=== PATIENT | male | born 1980 ===

== ENCOUNTER 2018-06-16 23:06 | Inpatient (IN) | payer OTHER ==
[2018-06-16] MEDS ORDERED: ACETAMINOPHEN 1000 MG/100 ML VIAL (NON FORMULARY) IVPB ONE (23:14)
[2018-06-16] MEDS ORDERED: SODIUM CHLORIDE 1,000 ML IV STA ×2 (23:14)
[2018-06-16] MEDS ORDERED: PIPERACILLIN/TAZOB 3.375 GM 3.375 GM in DEXTROSE 5%-WATER - 50 ML IVPB ONE (23:14)
[2018-06-16 23:17] VITALS: BMI 27.3
[2018-06-16] MEDS ORDERED: PIPERACILLIN/TAZOB 4.5 GM 4.5 GM in DEXTROSE 5%-WATER 100 ML IVPB ONE (23:21)
[2018-06-16] MEDS ORDERED: VANCOMYCIN 1 GRAM (PRE-DOCKED) 1,000 MG/250 ML BAG IVPB ONE (23:22)
[2018-06-16] MEDS ORDERED: PIPERACILLIN/TAZOB 4.5 GM 4.5 GM/100 ML BAG IVPB ONE (23:22)
[2018-06-16 23:37] LABS: BASO % 1.6 % (0-2.0); EOS % 2.3 % (0-4.5); LYMPH % 12.6 % (8-40); MCH 24.3 pg (25.7-33.7); MCHC 32.4 g/dl (32.0-35.9); MEAN CELL VOLUME 74.9 fl (80-96); MEAN PLT VOLUME 7.4 fl (7.5-11.1); MONO % 10.6 % (3.8-10.2); NEUT % 72.9 % (42.8-82.8); PLATELET COUNT 696 K/MM3 (134-434); RBC 4.94 M/mm3 (4.00-5.60); RDW 19.1 % (11.9-15.9); WHITE BLOOD COUNT 11.5 K/mm3 (4.0-10.0)
[2018-06-16 23:43] LABS: INR 1.17 (0.83-1.09); PROTHROMBIN TIME (PATIENT) 13.8 SEC (9.7-13.0)
[2018-06-16] MEDS ORDERED: VANCOMYCIN 1 GRAM (PRE-DOCKED) 1,000 MG/250 ML BAG IVPB SCH (23:45)
--- NOTE | 2018-06-16 23:45 | PDOC ---
History of Present Illness - General Chief Complaint: SIRS, Suspected/Possible Stated Complaint: TACHYCARDIA Time Seen by Provider: 06/16/18 23:24 History Source: [facility] Records Exam Limitations: Clinical Condition - History of Present Illness Initial Comments: 06/17/18 01:30 The patient is a 37M with a PMH of profound MR, cerebral palsy, hyperthyroidism , B-thalassemia trait, monocular extropia (R), b/l pathological hip dislocations , scoliosis, h/l aspiration PNA, severe GERD, PEG tube (10/2004), jejunostomy feeding (2010), who presents to the ER from [facility] for fever. En route, EMS noted hypotension (70's/40's) with tachycardia to 110's, and tachypnea. No other history could be provided. Past History - Past Medical History Allergies/Adverse Reactions: Allergies Allergy/AdvReac Type Severity Reaction Status Date / Time No Known Allergies Allergy Verified 06/16/18 23:37 Home Medications: Ambulatory Orders Atenolol [Tenormin -] 37.5 mg PEG DAILY 06/16/18 Baclofen 10 mg PEG TID 06/16/18 Bisacodyl Suppository [Dulcolax Suppository -] 10 mg RC DAILY PRN 06/16/18 Calcium Carbonate/Vitamin D3 [Oystercal-D 500 mg-400 Unit Tb] 1 each PEG DAILY 06/16/18 Clindamycin 1% Gel [Cleocin *Gel*] 1 applic TP HS 06/16/18 Ferrous Sulfate [Ferosul] 220 mg PEG DAILY 06/16/18 Fluticasone Prop 0.05% Nasal [Flonase -] 1 - 2 spray NS DAILY 06/16/18 Lactobacillus Acidophilus/Fos [Acidophilus Probiotic Tablet] 1 each PEG BID Multivit-Minerals/Ferrous Fum [Multivitamin Liquid] 9 mg PEG DAILY 06/16/18 Nystatin Powder [Nystop Topical Powder -] 15 gm TP BID 06/16/18 Potassium Chloride [Potassium Chloride Oral Liquid] 20 meq PEG DAILY 06/16/18 Simethicone Liquid [Mylicon] 40 mg PEG QID 06/16/18 Tiagabine HCl [Gabitirl (Nf) -] 4 mg PEG TID 06/16/18 Tizanidine HCl 4 mg PEG QID 06/16/18 Zinc Gluconate 200 mg PEG DAILY 06/16/18 Zinc Oxide 20% Topical Oint 454 gm NR BID 06/16/18 Albuterol 0.083% Nebulizer Emeli [Ventolin 0.083%] 1 neb NEB Q4H 06/17/18 Mag Hydrox/Aluminum Hyd/Simeth [Antacid Plus Anti-Gas Liquid] 5 ml PEG TID 06/17 - Suicide/Smoking/Psychosocial Hx Smoking History: Never smoked Have you smoked in the past 12 months: No Information on smoking cessation initiated: No Hx Alcohol Use: No Drug/Substance Use Hx: No Review of Systems - Review of Systems Able to Perform ROS?: No (clinical condition) *Physical Exam - Vital Signs Last Vital Signs Temp Pulse Resp BP Pulse Ox 92 H 16 81/61 L 100 06/16/18 23:15 06/16/18 23:15 06/16/18 23:15 06/16/18 23:15 - Physical Exam Comments: 06/17/18 01:34 GENERAL: Poorly developed, contracted diffusely. Awake and alert. No acute distress. HEENT: Normocephalic, atraumatic. Hearing grossly normal. Moist mucous membranes. PERRLA, EOMI. No conjunctival pallor. Sclera are non-icteric. NECK: Contracted facing R. CARDIOVASCULAR: Tachycardic with regular rhythm. No murmurs, rubs, or gallops. Distal pulses are 2+ and symmetric. PULMONARY: Mild respiratory distress. Diffuse coarse breath sounds. ABDOMINAL: Distended without rebound or guarding. Cellulitic rash noted around PEG tube with yellow, purulent discharge noted. Skin excoriated and erythematous. MUSCULOSKELETAL: Diffusely contracted. EXTREMITIES: No cyanosis. No clubbing. No edema. No calf tenderness or swelling. SKIN: Warm and dry. Normal capillary refill. No rashes. No jaundice. NEUROLOGICAL: Awake, smiles to verbal stimulation, otherwise nonconverational. PSYCHIATRIC: Cooperative. Good eye contact but nonconversational. Heart Score/ECG Review #1 ECG reviewed & interpreted by me at: 01:42 General ECG Interpretation: Sinus Rhythm, Normal Rate, Normal Intervals, No acute ischemic changes Compared to previous ECG there are: Previous ECG unavail 06/17/18 01:43 Sinus tach vent rate 100 NM 120 QRS 68 QTc 452 No STD or CHERISE No signs of acute ischemia No priors ED Treatment Course - LABORATORY CBC & Chemistry Diagram: 06/16/18 23:18 06/16/18 23:18 - ADDITIONAL ORDERS Additional order review: 06/16/18 23:18 RBC 4.94 MCV 74.9 L MCHC 32.4 RDW 19.1 H MPV 7.4 L Neutrophils % 72.9 Lymphocytes % 12.6 Monocytes % 10.6 H Eosinophils % 2.3 Basophils % 1.6 - Medications Given in the ED: ED Medications Discontinued Medications Generic Name Dose Route Start Last Admin Trade Name Freq PRN Reason Stop Dose Admin Piperacillin Sod/Tazobactam 50 mls @ 100 mls/hr 06/16/18 23:14 06/16/18 23:38 Sod 3.375 gm/ Dextrose IVPB 06/16/18 23:43 Not Given ONCE ONE Protocol Medical Decision Making - Medical Decision Making 06/17/18 01:43 The patient is a 37M with extensive PMH who presents to the ER with a fever, tachycardia, and tachypnea with hypoxia. Will order septic protocol and give 2 L of fluids. Pt noted to have a MAP of 70 after fluids. Will hold off on central line currently. Will give broad spectrum abx (vanc/zosyn) and monitor closely. Concern for sepsis from urine. Could not pass boss and couday catheter. Will image pt with CTAP with contrast and chest noncontrast. CXR pending. IV access established. 06/17/18 01:47 Pt's mother called ER to inform me that the patient will go into a deep sleep ( sometimes confused for unresponsiveness), have sweating, and have changes in his breathing after being given baclofen and zanaflex. She did state that he normally has a systolic BP in the 100's at least. Aline [phone] Mother 06/17/18 02:08 Pt signed out to Dr. Valentine for further care. *DC/Admit/Observation/Transfer - Discharge Dispostion Decision to Admit order Date/Time: Decision to Admit Order Category Date Time Status Decision to Admit to Hospital Routine Admission 06/16/18 23:36 Active - Referrals Referrals: Asaf Rios Jr [Primary Care Provider] - - Patient Instructions - Post Discharge Activity
[2018-06-16 23:46] LABS: ACTIVATED PTT 33.4 SECONDS (25.2-36.5)
[2018-06-17] LABS: ALBUMIN 3.2 g/dl (3.4-5.0); ALK PHOS 125 U/L (45-117); ANION GAP 10 MMOL/L (8-16); BILIRUBIN,TOTAL 0.3 mg/dL (0.2-1); BLOOD UREA NITROGEN 65 mg/dL (7-18); CALCIUM 9.4 mg/dL (8.5-10.1); CHLORIDE 101 mmol/L (98-107); CO2 30 mmol/L (21-32); CREATININE 1.2 mg/dL (0.55-1.3); GLUCOSE,RANDOM 106 mg/dL (74-106); POTASSIUM 4.8 mmol/L (3.5-5.1); SGOT/AST 58 U/L (15-37); SGPT/ALT 49 U/L (13-61); SODIUM 141 mmol/L (136-145); TOT PROT 8.7 g/dl (6.4-8.2)
[2018-06-17 00:31] LABS: VENOUS PC02 47.2 mmHg (38-52); VENOUS PH 7.42 (7.32-7.42); VENOUS PO2 39.7 mmHg (28-48)
[2018-06-17] MEDS ORDERED: VANCOMYCIN 1 GRAM (PRE-DOCKED) 1,000 MG/250 ML BAG IVPB ONE (01:13)
--- NOTE | 2018-06-17 01:44 | PDOC ---
Attending Attestation - Resident Resident Name: Dilip Reddy - ED Attending Attestation I have performed the following: I have examined & evaluated the patient, The case was reviewed & discussed with the resident, I agree w/resident's findings & plan, Exceptions are as noted - HPI HPI: 06/17/18 01:38 Mr Moose Mondragon is a 37yo M h/o MRCP, epilepsy, hyperthyroidism, resident of [facility] Pt presents to the ER due to fevers - Physicial Exam PE: 06/17/18 01:44 contracted Awake and alert Drooling Rhoncherous breathing tachycardiac Abd distended, some sort of ostomy is present and draining clear fluid J tub present contracted lower extremity No swelling Skin abdomen erythematous - Medical Decision Making 06/17/18 01:47 Pt is septic NS 2 L given Pt weight 87pounds - 40 kg Pt BP improved Pt anatomy is unclear to me Will perform CT abd and pelvis Given poor lung sounds, will perform CT chest ABX ordered It appears that the patient typically seen at [facility] (no known cultures) Twelve-lead EKG was performed and reviewed by me. There is normal sinus rhythm with a tachycardiac rate of 103. The axis is normal. The intervals are normal. There are no ST or T wave abnormalities. 06/17/18 01:51 Laboratory Tests 06/16/18 06/16/18 06/16/18 23:18 23:18 23:18 WBC 11.5 H Hgb 12.0 Hct 37.0 Plt Count 696 H Neutrophils % 72.9 Lymphocytes % 12.6 INR 1.17 H VBG pH POC VBG pCO2 POC VBG pO2 Mixed VBG HCO3 BUN 65 H Creatinine 1.2 Creatine Kinase 94 CK-MB (CK-2) < 1.0 Troponin I 06/16/18 06/16/18 23:18 23:24 WBC Hgb Hct Plt Count Neutrophils % Lymphocytes % INR VBG pH 7.42 POC VBG pCO2 47.2 POC VBG pO2 39.7 Mixed VBG HCO3 29.7 H BUN Creatinine Creatine Kinase CK-MB (CK-2) Troponin I < 0.[address] Escamilla pending CT and admission If pt becomes hypotensive, will need Ctrl line and vasopressors Clinical impression: sepsis, initial presentation
--- NOTE | 2018-06-17 04:22 | PDOC ---
*Physical Exam - Vital Signs Last Vital Signs Temp Pulse Resp BP Pulse Ox 92 H 16 81/61 L 100 06/16/18 23:15 06/16/18 23:15 06/16/18 23:15 06/16/18 23:15 - Physical Exam Comments: 06/18/18 00:12 Continuation of care; pt was signed out to me. ED Treatment Course - LABORATORY CBC & Chemistry Diagram: 06/17/18 07:50 06/17/18 07:50 - ADDITIONAL ORDERS Additional order review: Laboratory Results 06/16/18 06/16/18 06/16/18 23:24 23:18 23:18 PT with INR INR PTT (Actin FS) VBG pH 7.42 POC VBG pCO2 47.2 POC VBG pO2 39.7 Mixed VBG HCO3 29.7 H Sodium Potassium Chloride Carbon Dioxide Anion Gap BUN Creatinine Creat Clearance w eGFR Random Glucose Lactic Acid Calcium Total Bilirubin AST ALT Alkaline Phosphatase Creatine Kinase CK-MB (CK-2) Troponin I < 0.02 Total Protein Albumin Blood Type Cancelled Antibody Screen Cancelled 06/16/18 06/16/18 06/16/18 23:18 23:18 23:18 PT with INR 13.80 H INR 1.17 H PTT (Actin FS) 33.4 VBG pH POC VBG pCO2 POC VBG pO2 Mixed VBG HCO3 Sodium 141 Potassium 4.8 Chloride 101 Carbon Dioxide 30 Anion Gap 10 BUN 65 H Creatinine 1.2 Creat Clearance w eGFR > 60 Random Glucose 106 Lactic Acid 1.6 Calcium 9.4 Total Bilirubin 0.3 AST 58 H ALT 49 Alkaline Phosphatase 125 H Creatine Kinase 94 CK-MB (CK-2) < 1.0 Troponin I Total Protein 8.7 H Albumin 3.2 L Blood Type Antibody Screen 06/16/18 23:18 RBC 4.94 MCV 74.9 L MCHC 32.4 RDW 19.1 H MPV 7.4 L Neutrophils % 72.9 Lymphocytes % 12.6 Monocytes % 10.6 H Eosinophils % 2.3 Basophils % 1.6 - Medications Given in the ED: ED Medications Discontinued Medications Generic Name Dose Route Start Last Admin Trade Name Freq PRN Reason Stop Dose Admin Acetaminophen 1,000 mg 06/16/18 23:14 06/17/18 01:27 Ofirmev Injection - IVPB 06/16/18 23:15 1,000 mg ONCE ONE Administration Sodium Chloride 1,000 mls @ 1,000 mls/hr 06/16/18 23:14 06/16/18 23:37 Normal Saline - IV 06/17/18 00:13 1,000 mls/hr ASDIR STA Administration Piperacillin Sod/Tazobactam 50 mls @ 100 mls/hr 06/16/18 23:14 06/16/18 23:38 Sod 3.375 gm/ Dextrose IVPB 06/16/18 23:43 Not Given ONCE ONE Protocol Piperacillin Sod/Tazobactam 100 mls @ 200 mls/hr 06/16/18 23:21 06/16/18 23: 38 Sod 4.5 gm/ Dextrose IVPB 06/16/18 23:50 200 mls/hr ONCE ONE Administration Protocol Medical Decision Making - Medical Decision Making 06/17/18 04:22 Patient Name: JERE CALI THIS IS A PRELIMINARY REPORT FROM [facility] DATE OF SERVICE: 2018-06-17 03:08:30 IMAGES: No significant soft tissue edema or abscess identified. EXAM: CT chest, abdomen and pelvis with contrast HISTORY: Diffuse cellulitis and coarse breath sounds COMPARISON: None. FINDINGS: CT chest:There is no aortic dissection or aneurysm. There is no significant mediastinal or hilar adenopathy. The heart size is normal. The trachea and bronchi are patent. There is no pleural or pericardial effusion. The lungs are clear. 10 mm left thyroid nodule is noted debris in the left lower lobe bronchus indicates aspiration CT abdomen and pelvis: Minimal perihepatic free fluid is noted. Normal liver, gallbladder, pancreas, spleen, adrenal glands and kidneys. Jejunostomy tube is noted. There appears to been a gastrostomy with a mucocele in the anterior skin surface. The stomach is decompressed. The colon is decompressed. Several air distended loops of bowel measuring up to 5.0 cm it represents small bowel. There is no associated bowel wall thickening. Findings are suspected to represent ileus although obstruction cannot excluded. There is no aortic aneurysm. There is no significant retroperitoneal lymphadenopathy. There is no evidence of appendicitis, although the attending t is only questionably visualized. The urinary bladder and prostate gland are normal. No pelvic free fluid is identified. There is no significant pelvic lymphadenopathy. Scoliosis and spina bifida is noted. IMPRESSION: Aspirated material left lower lobe bronchus but no evidence of pneumonia. Suspected small bowel ileus although bowel obstruction is not excluded. . THIS DOCUMENT HAS BEEN ELECTRONICALLY SIGNED *DC/Admit/Observation/Transfer Diagnosis at time of Disposition: Sepsis - Discharge Dispostion Condition at time of disposition: Guarded - Referrals - Patient Instructions - Post Discharge Activity
[2018-06-17] MEDS ORDERED: KETOROLAC TROMETHAMINE 30 MG/1 ML VIAL IVPUSH ONE (05:03)
--- NOTE | 2018-06-17 05:28 | HP ---
CHIEF COMPLAINT: PCP: Dr. Rick Still HISTORY OF PRESENT ILLNESS: unable to provide. History obtained by chart review. "The patient is a 37M with a PMH of profound MR, cerebral palsy, hyperthyroidism, B-thalassemia trait, monocular extropia (R), b/l pathological hip dislocations, scoliosis, h/l aspiration PNA, severe GERD, PEG tube (10/2004) , jejunostomy feeding (2010), who presents to the ER from [facility] for fever. En route, EMS noted hypotension (70's/40's) with tachycardia to 110's, and tachypnea. No other history could be provided" ER course was notable for: (1)Vanc and Zosyn (2)BCx. (3)Labs Recent Travel: NA PAST MEDICAL HISTORY: Chart Reviewed as health aid did not know. HTN, MR, partial seizures, GERD, hyperthyroidism, scoliosis, functional quadriplegia, Hx. of aspiration pneumonia PAST SURGICAL HISTORY: J-tube placement, and gastrostomy bag placement( because of aspiration) Social History: Smoking:N/A Alcohol:N/A Drugs: N/A Family History: Not able to answer Allergies No Known Allergies Allergy (Verified 06/16/18 23:37) HOME MEDICATIONS: Home Medications Medication Instructions Recorded Atenolol [Tenormin -] 37.5 mg PEG DAILY 06/16/18 Baclofen 10 mg PEG TID 06/16/18 Bisacodyl Suppository [Dulcolax 10 mg RC DAILY PRN 06/16/18 Suppository -] Calcium Carbonate/Vitamin D3 1 each PEG DAILY 06/16/18 [Oystercal-D 500 mg-400 Unit Tb] Clindamycin 1% Gel [Cleocin *Gel*] 1 applic TP HS 06/16/18 Ferrous Sulfate [Ferosul] 220 mg PEG DAILY 06/16/18 Fluticasone Prop 0.05% Nasal 1 - 2 spray NS DAILY 06/16/18 [Flonase -] Lactobacillus Acidophilus/Fos 1 each PEG BID 06/16/18 [Acidophilus Probiotic Tablet] Multivit-Minerals/Ferrous Fum 9 mg PEG DAILY 06/16/18 [Multivitamin Liquid] Nystatin Powder [Nystop Topical 15 gm TP BID 06/16/18 Powder -] Potassium Chloride [Potassium 20 meq PEG DAILY 06/16/18 Chloride Oral Liquid] Simethicone Liquid [Mylicon] 40 mg PEG QID 06/16/18 Tiagabine HCl [Gabitirl (Nf) -] 4 mg PEG TID 06/16/18 Tizanidine HCl 4 mg PEG QID 06/16/18 Zinc Gluconate 200 mg PEG DAILY 06/16/18 Zinc Oxide 20% Topical Oint 454 gm NR BID 06/16/18 Albuterol 0.083% Nebulizer Emeli 1 neb NEB Q4H 06/17/18 [Ventolin 0.083%] Mag Hydrox/Aluminum Hyd/Simeth 5 ml PEG TID 06/17/18 [Antacid Plus Anti-Gas Liquid] REVIEW OF SYSTEMS Unable to answer PHYSICAL EXAMINATION Vital Signs - 24 hr 06/16/18 23:15 Pulse Rate 92 H Respiratory 16 Rate Blood Pressure 81/61 L O2 Sat by Pulse 100 Oximetry (%) GENERAL: Awake, alert, in no acute distress. HEAD: Normal with no signs of trauma. EYES: Pupils equal, round and reactive to light, sclera anicteric, conjunctiva clear. EARS, NOSE, THROAT: Ears normal, nares patent, oropharynx with white secretions and exudates. Moist mucous membranes. LUNGS: Breath sounds equal, clear to auscultation bilaterally. No wheezes, and no crackles. No accessory muscle use. HEART: Regular rate and rhythm, normal S1 and S2 ABDOMEN: Soft, nontender, not distended, normoactive bowel sounds, no guarding, no rebound, no masses MUSCULOSKELETAL: Scoliosis, with b/l hip deformities UPPER EXTREMITIES: 2+ radial pulses, warm, well-perfused. No cyanosis. No clubbing. No peripheral edema. LOWER EXTREMITIES: 2+ dorsal pedal pulses, warm, well-perfused. No calf tenderness. No peripheral edema. SKIN: Warm, areas on the abdomen around gastrostomy tube and J-tube erythematous and with discharge present. gastrostomy tube leaking contents onto abdomen. Laboratory Results - last 24 hr 06/16/18 06/16/18 06/16/18 23:18 23:18 23:18 WBC 11.5 H RBC 4.94 Hgb 12.0 Hct 37.0 MCV 74.9 L MCH 24.3 L MCHC 32.4 RDW 19.1 H Plt Count 696 H MPV 7.4 L Absolute Neuts (auto) 8.4 H Neutrophils % 72.9 Lymphocytes % 12.6 Monocytes % 10.6 H Eosinophils % 2.3 Basophils % 1.6 Nucleated RBC % 0 PT with INR 13.80 H INR 1.17 H PTT (Actin FS) 33.4 VBG pH POC VBG pCO2 POC VBG pO2 Mixed VBG HCO3 Sodium 141 Potassium 4.8 Chloride 101 Carbon Dioxide 30 Anion Gap 10 BUN 65 H Creatinine 1.2 Creat Clearance w eGFR > 60 Random Glucose 106 Lactic Acid Calcium 9.4 Total Bilirubin 0.3 AST 58 H ALT 49 Alkaline Phosphatase 125 H Creatine Kinase 94 CK-MB (CK-2) < 1.0 Troponin I Total Protein 8.7 H Albumin 3.2 L Blood Type Antibody Screen 06/16/18 06/16/18 06/16/18 23:18 23:18 23:18 WBC RBC Hgb Hct MCV MCH MCHC RDW Plt Count MPV Absolute Neuts (auto) Neutrophils % Lymphocytes % Monocytes % Eosinophils % Basophils % Nucleated RBC % PT with INR INR PTT (Actin FS) VBG pH POC VBG pCO2 POC VBG pO2 Mixed VBG HCO3 Sodium Potassium Chloride Carbon Dioxide Anion Gap BUN Creatinine Creat Clearance w eGFR Random Glucose Lactic Acid 1.6 Calcium Total Bilirubin AST ALT Alkaline Phosphatase Creatine Kinase CK-MB (CK-2) Troponin I < 0.02 Total Protein Albumin Blood Type Cancelled Antibody Screen Cancelled 06/16/18 23:24 WBC RBC Hgb Hct MCV MCH MCHC RDW Plt Count MPV Absolute Neuts (auto) Neutrophils % Lymphocytes % Monocytes % Eosinophils % Basophils % Nucleated RBC % PT with INR INR PTT (Actin FS) VBG pH 7.42 POC VBG pCO2 47.2 POC VBG pO2 39.7 Mixed VBG HCO3 29.7 H Sodium Potassium Chloride Carbon Dioxide Anion Gap BUN Creatinine Creat Clearance w eGFR Random Glucose Lactic Acid Calcium Total Bilirubin AST ALT Alkaline Phosphatase Creatine Kinase CK-MB (CK-2) Troponin I Total Protein Albumin Blood Type Antibody Screen ASSESSMENT/PLAN: A 37 y.o. M with PMHx of MR,HTN, partial seizures, s/p colostomy bag placement, s/p J-tube placement present with fevers, low blood pressure and elevated WBC. -Sepsis vs. Septic shock Temperature on admission was 98.2 however per chart review and talking with the aid. WBCs: 11.5, BP: 81/61, subjective fever per nursing aids, and purulent discharge from J-tube, leaky colostomy bag with feces leaking over areas of raw flesh. CT A/P: Gastrostomy w/ Mucocele in anterior skin surface, small bowel ileus, cannot rule out obstruction, distended loops of bowel Hx. of MDR organisms, will consult Dr. Phillip. Pt. grew organisms that were susceptible to Clindamycin and Aztreonam. Start IVF- LR f/u BCx. VBG appreciated -Hypotension 2/2 sepsis Given 1L NS in ED c/w Abx. c/w IVF Pt. takes Tizanidine which has a known side effect of hypotension -Displaced J-tube F/u surgery consult recommendations, as per chart review this has happened before -Open wounds c/w Abx. Dr. Frank consult appreciated -Hyperthyroidism CT-Chest showed 10mm left thyroid nodule f/u TSH, if abnormal will get free T4, and T3 studies -Aspiration CT Chest shows LLL aspirate, w/o pneumonia Abx. will cover this. -HTN Hold Atenolol as BP is low -Constipation c/w ducolax suppositories FOBT- -Partial seizures c/w Tiagabine -Muscle Spasms hold baclofen and tizanidine because of blood pressure lowering effects -Beta Thalassemia Per chart review there is a history for B-thalassemia f/u Iron studies f/u reticulocytes -F/E/N LR @ 100ml/hr -DVT Ppx. SCDs . Visit type - Emergency Visit Emergency Visit: Yes ED Registration Date: 06/16/18 Care time: The patient presented to the Emergency Department on the above date and was hospitalized for further evaluation of their emergent condition. - New Patient This patient is new to me today: Yes Date on this admission: 06/16/18 - Critical Care Critical Care patient: No
--- NOTE | 2018-06-17 05:31 | PDOC ---
*Physical Exam - Vital Signs Last Vital Signs Temp Pulse Resp BP Pulse Ox 92 H 16 81/61 L 100 06/16/18 23:15 06/16/18 23:15 06/16/18 23:15 06/16/18 23:15 - Physical Exam Comments: 06/17/18 05:25 I received sign out from Dr. Reddy at 2am. General Appearance: Yes: Other (thin contract at the limbs male. looks diaphoretic. ) HEENT: positive: EOMI, GWEN, Other (excessive oral secretions. ) Neck: positive: Other (contracted to the right) Respiratory/Chest: positive: Lungs Clear, Normal Breath Sounds. negative: Chest Tender, Respiratory Distress, Accessory Muscle Use Cardiovascular: positive: Regular Rhythm, Regular Rate, S1, S2. negative: Systolic Murmur Gastrointestinal/Abdominal: positive: Decreased BS, Other (cellulitic changes ) Rectal Exam: positive: other (unstageable right buttock ulcer. healing right hip ulcer. ) Musculoskeletal: positive: Other (contracted in all 4 limbs.) Integumentary: positive: Normal Color, Dry, Warm Neurologic: positive: Alert, Respond to painful stimul ED Treatment Course - LABORATORY CBC & Chemistry Diagram: 06/16/18 23:18 06/16/18 23:18 - ADDITIONAL ORDERS Additional order review: Laboratory Results 06/16/18 06/16/18 06/16/18 23:24 23:18 23:18 PT with INR INR PTT (Actin FS) VBG pH 7.42 POC VBG pCO2 47.2 POC VBG pO2 39.7 Mixed VBG HCO3 29.7 H Sodium Potassium Chloride Carbon Dioxide Anion Gap BUN Creatinine Creat Clearance w eGFR Random Glucose Lactic Acid Calcium Total Bilirubin AST ALT Alkaline Phosphatase Creatine Kinase CK-MB (CK-2) Troponin I < 0.02 Total Protein Albumin Blood Type Cancelled Antibody Screen Cancelled 06/16/18 06/16/18 06/16/18 23:18 23:18 23:18 PT with INR 13.80 H INR 1.17 H PTT (Actin FS) 33.4 VBG pH POC VBG pCO2 POC VBG pO2 Mixed VBG HCO3 Sodium 141 Potassium 4.8 Chloride 101 Carbon Dioxide 30 Anion Gap 10 BUN 65 H Creatinine 1.2 Creat Clearance w eGFR > 60 Random Glucose 106 Lactic Acid 1.6 Calcium 9.4 Total Bilirubin 0.3 AST 58 H ALT 49 Alkaline Phosphatase 125 H Creatine Kinase 94 CK-MB (CK-2) < 1.0 Troponin I Total Protein 8.7 H Albumin 3.2 L Blood Type Antibody Screen 06/16/18 23:18 RBC 4.94 MCV 74.9 L MCHC 32.4 RDW 19.1 H MPV 7.4 L Neutrophils % 72.9 Lymphocytes % 12.6 Monocytes % 10.6 H Eosinophils % 2.3 Basophils % 1.6 - RADIOLOGY Radiology Studies Ordered: Category Date Time Status CHEST X-RAY PORTABLE* [RAD] Stat Radiology 06/17/18 00:52 Taken - Medications Given in the ED: ED Medications Discontinued Medications Generic Name Dose Route Start Last Admin Trade Name Freq PRN Reason Stop Dose Admin Acetaminophen 1,000 mg 06/16/18 23:14 06/17/18 01:27 Ofirmev Injection - IVPB 06/16/18 23:15 1,000 mg ONCE ONE Administration Sodium Chloride 1,000 mls @ 1,000 mls/hr 06/16/18 23:14 06/16/18 23:37 Normal Saline - IV 06/17/18 00:13 1,000 mls/hr ASDIR STA Administration Piperacillin Sod/Tazobactam 50 mls @ 100 mls/hr 06/16/18 23:14 06/16/18 23:38 Sod 3.375 gm/ Dextrose IVPB 06/16/18 23:43 Not Given ONCE ONE Protocol Piperacillin Sod/Tazobactam 100 mls @ 200 mls/hr 06/16/18 23:21 06/16/18 23: 38 Sod 4.5 gm/ Dextrose IVPB 06/16/18 23:50 200 mls/hr ONCE ONE Administration Protocol Medical Decision Making - Medical Decision Making 06/17/18 05:34 I received this patient at sign out from Dr. Reddy A CT chest and abdomen was ordered prior. CT shows left lower lobe aspiration material without pneumonia and small bowel ileus in which obstruction cannot be ruled out. *DC/Admit/Observation/Transfer - Referrals Referrals: Asaf Rios Jr [Primary Care Provider] - - Patient Instructions - Post Discharge Activity
[2018-06-17] MEDS ORDERED: KETOROLAC TROMETHAMINE 30 MG/1 ML VIAL ONE (05:54)
[2018-06-17] MEDS ORDERED: LACTATED RINGERS SOLUTION 1,000 ML/1,000 ML INFUS.BAG IV SCH (06:30)
--- NOTE | 2018-06-17 06:41 | PN ---
Teaching Attending Note Name of Resident: Calvin Jacobo ATTENDING PHYSICIAN STATEMENT I saw and evaluated the patient. I reviewed the resident's note and discussed the case with the resident. I agree with the resident's findings and plan as documented. Please note that this medical record is not included with the rest of his chart; it is listed under the name "Gonzalo Mondragon." This was identified by treatment team this morning and we will speak with the medical records dept to combine the charts SUBJECTIVE: Seen and examined; please see resident note for further historical information. This is a patient who is well-known to the GI and Medicine service. He has a complex PMH significant for MR/CP, congen. quadraplegia, seizures, hyperthyroidism, scoliosis, ongoing GIB (for which we will only intervene on if severe), recurring issues with leaky jejunostomy tube, prolonged QTc, B- thalasemia trait, b/l hip dislocations; he is nonverbal and cannot provide a history. Unfortunately the aid that is here with him cannot provide any history. Indication that he may also occasionally go to [facility] and encouraged residents to obtain records which are pending. He doesn't appear lethargic and smiles and is tracking. He opens his eyes to voice and tries to respond in nonsensical noises. He has large areas of red excoriation on his abdomen near the site of his tubes and a leaky ostomy bag covering the patient' s anterior abdomen with intraluminal contents. He has a large unstagable but non-infected appearing decubitus under his right hip (exact location truly difficult to determine due to his degree of contracture but likely under ischeal tuberosity). He occasionally has required O2 in the past and required O2 in the ER. He was hypotensive to the 70/40 range with EMS and tachycardic which is now in the mid 90s. He was given vancomycin and zosyn in ER and hydrated (allergy to zosyn likely not true from his other chart as he tolerated zosyn fine here). His J-tube was hooked to LIWS when there was found to be concern for ileus vs. SBO on abdominal CT. His old microbiology is reviewed on his other chart; he grows out MDR organisms in his sputum that are sensitive to carbapenems but sensitive to aztreonam. He has also grown out multidrugresistent S. epi in his blood. 10 system ROS unable to be done. Couldn't confirm or obtain PMH or PSH with facility; what is from old chart is documented. Couldn't confirm FH or social history. Able to elucidate that he had PEG 2004 and Jejunostomy in 2010. OBJECTIVE: VS, labs, imaging reviewed NAD, in bed, tracking and responds to verbal stimuli. Pleasant and interactive Abdomen with ostomy bag and tube dislodgement with luminal contents and TF on patient. Nearly beefy-red tissue around the sites that is warm to touch and has irregular borders taking up nearly the entire abdomen. Diminished bowel sounds with some distension. Didn't appear uncomfortable when palpated. Scattered rales; on 2L NC; sym exp RRR s1/2 no mgr Contracted with increased muscle tone Labs show Imaging (CT chest abdomen and pelvis) shows on CT chest: Clear lungs with no pleural effusion. 10mm L-thyroid nodule. LLL bronchus debris consistent with aspiration. CT abdomen and pelvis shows gastrostomy wth mucocele in the anterior surface with the jejunostomy tube noted. Several air filled loops of bowel measuring up to 5cm seen wihtout thickening representing ileus vs. SBO ( could not exclude). ASSESSMENT AND PLAN: 37 y/o AAM resident of [facility] with hypotension and tachycardia found to have aspirated with questionable SBO vs. Ileus. Initially hypotensive/tachy but VS normalized. Interestingly, he has no fevers. WBC only 11. 1) Hypotension/tachycardia -Patient presented with this from the [place]; need to phone them today to get additional history as it wasn't clear with whom we were able to speak with overnight. This could be due to infectious process, but only slightly elevated WBC and no fevers. Still, has history of multidrug resistent aspiration pneumonia in the past and given the sevitity of his acute presentation will elect to cover with Aztreonam and clindamycin. This would cover the resistent organisms he is colonized with alongside an aspiration component and the skin findings on his abdomen. Trend CBC and monitor for fevers. Consulting Dr. Phillip (has seen patient before). Source could be aspiration pneumonia vs. cellulitis vs. aspiration pneumonitis. Leaning towards a pneumonitis picture as the prelim read on the radiology couldn't see any maggie infiltrates but did see the aspirated food in the LLL. followup cultures, etc. 2) Skin breakdown +/- cellulitis -continue use of barrier creams, nystatin ointment. -Covered by clinda if cellulitis -Wound care consulted for further recommendations 3) Unstagable decub -Wound care consult; doesn't appear infected 4) Ileus vs. SBO -Sgy consulted; LIWS to J-tube. Diminished bowel sounds. -Further management per sgy; ER stated they would call. 4) Thyroid nodule w/ documented h/o hyperthyroidism -Check TSH, FT4; outpatient followup likely as not clinically hyperthyroid. 5) Seizures -Seizure precations -Continue home meds 6) Prolonged QTc -Avoiding offending agents 7) J tube sliding out -Place dressing as one was missing. If this is a recurring issue even with proper dressing can consult GI to have them repeat this. He does have a gastrostomy as well. 8) Elevated Alk Phos -Check GGt; trend CMP. Further workup per this 9) High protein, low albumin -Consider further workup OP 10) Chronic GI Bleed -Negative FOBT now, monitor. Seen by GI in past who said only intervene if significant. Full Code
[2018-06-17 08:12] LABS: BASO % 0.3 % (0-2.0); EOS % 2.6 % (0-4.5); HEMATOCRIT 36.2 % (35.4-49); HEMOGLOBIN 11.4 GM/dL (11.7-16.9); LYMPH % 20.2 % (8-40); MCH 23.6 pg (25.7-33.7); MCHC 31.4 g/dl (32.0-35.9); MEAN CELL VOLUME 75.1 fl (80-96); MEAN PLT VOLUME 7.3 fl (7.5-11.1); MONO % 8.1 % (3.8-10.2); NEUT % 68.8 % (42.8-82.8); PLATELET COUNT 525 K/MM3 (134-434); RBC 4.82 M/mm3 (4.00-5.60); RDW 18.9 % (11.9-15.9); WHITE BLOOD COUNT 9.2 K/mm3 (4.0-10.0)
[2018-06-17 08:41] LABS: INR 1.09 (0.83-1.09); PROTHROMBIN TIME (PATIENT) 12.9 SEC (9.7-13.0)
[2018-06-17 08:44] LABS: ACTIVATED PTT 25.5 SECONDS (25.2-36.5)
[2018-06-17 08:47] LABS: ALBUMIN 3.1 g/dl (3.4-5.0); ALK PHOS 112 U/L (45-117); ANION GAP 8 MMOL/L (8-16); BILIRUBIN,TOTAL 0.5 mg/dL (0.2-1); BLOOD UREA NITROGEN 51 mg/dL (7-18); CALCIUM 9.3 mg/dL (8.5-10.1); CHLORIDE 104 mmol/L (98-107); CO2 29 mmol/L (21-32); CREATININE 0.8 mg/dL (0.55-1.3); GLUCOSE,RANDOM 108 mg/dL (74-106); MAGNESIUM 2.8 mg/dL (1.8-2.4); PHOSPHOROUS 3.8 mg/dL (2.5-4.9); SGOT/AST 35 U/L (15-37); SGPT/ALT 47 U/L (13-61); SODIUM 141 mmol/L (136-145); TOT PROT 8.2 g/dl (6.4-8.2)
--- NOTE | 2018-06-17 12:32 | CON.ID ---
Consult Consult Specialty:: infectious disease Referred by:: hospitalist Reason for Consultation:: fever - History of Present Illness Chief Complaint: fever History of Present Illness: 37 yo man with multiple developmental delays admitted from [facility] with fever 101.2, tachycardis and hypoxia he was noted to be hypotensive and responded to IVF he had a ct scan of chest/abd/pelvis- prelim no abnormalities he received vanco/zosyn in ED resting comfortably he has skin excoriation on his abdomen that aide reports is chronic from his colostomy leakage +jtube with some drainage - History Source History Provided By: Medical Record Limitations to Obtaining History: Clinical Condition - Past Medical History 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 prior aspiration pneumonia. chronic buttock ulcer - Past Surgical History Additional Surgical History: Jtube. colostomy - Alcohol/Substance Use Hx Alcohol Use: No - Smoking History Smoking history: Never smoked Have you smoked in the past 12 months: No - Social History Usual Living Arrangement: Custodial ADL: Support Services Place of : [facility] History of Recent Travel: No Home Medications - Allergies Allergies/Adverse Reactions: Allergies Allergy/AdvReac Type Severity Reaction Status Date / Time No Known Allergies Allergy Verified 06/16/18 23:37 - Home Medications Home Medications: Ambulatory Orders Atenolol [Tenormin -] 37.5 mg PEG DAILY 06/16/18 Baclofen 10 mg PEG TID 06/16/18 Bisacodyl Suppository [Dulcolax Suppository -] 10 mg RC DAILY PRN 06/16/18 Clindamycin 1% Gel [Cleocin *Gel*] 1 applic TP HS 06/16/18 Ferrous Sulfate [Ferosul] 220 mg PEG DAILY 06/16/18 Fluticasone Prop 0.05% Nasal [Flonase -] 1 - 2 spray NS DAILY 06/16/18 Lactobacillus Acidophilus/Fos [Acidophilus Probiotic Tablet] 1 each PEG BID Multivit-Minerals/Ferrous Fum [Multivitamin Liquid] 9 mg PEG DAILY 06/16/18 Nystatin Powder [Nystop Topical Powder -] 15 gm TP BID 06/16/18 Potassium Chloride [Potassium Chloride Oral Liquid] 10 meq PEG DAILY 06/16/18 Simethicone Liquid [Mylicon] 40 mg PEG QID 06/16/18 Tiagabine HCl [Gabitirl (Nf) -] 4 mg PEG TID 06/16/18 Tizanidine HCl 4 mg PEG QID 06/16/18 Zinc Gluconate 100 mg PEG DAILY 06/16/18 Zinc Oxide 20% Topical Oint 454 gm NR BID 06/16/18 Albuterol 0.083% Nebulizer Emeli [Ventolin 0.083%] 1 neb NEB Q4H 06/17/18 Clotrimazole/Betamethasone Dip [Clotrimazole-Betamethasone Crm] 45 gm TP BID Mag Hydrox/Aluminum Hyd/Simeth [Antacid Plus Anti-Gas Liquid] 5 ml PEG TID 06/17 Protein Supplement [Promod] 30 ml GT BID 06/17/18 Water [Similac Sterilized Water] 300 ml PEG Q8H 06/17/18 Family Disease History - Family Disease History Family History: Unable to Obtain Review of Systems - Review of Systems Constitutional: reports: Fever Physical Exam Vital Signs: Vital Signs Temperature 98.6 F 06/17/18 09:15 Pulse Rate 100 H 06/17/18 09:15 Respiratory Rate 18 06/17/18 09:15 Blood Pressure 122/84 06/17/18 09:15 O2 Sat by Pulse Oximetry (%) 98 06/17/18 09:15 Constitutional: Yes: No Distress, Calm (smiling) Eyes: Yes: Conjunctiva Clear HENT: Yes: Atraumatic, Normocephalic Cardiovascular: Yes: Regular Rate and Rhythm Respiratory: Yes: CTA Bilaterally Gastrointestinal: Yes: Normal Bowel Sounds, Soft, Other (+leaking from colostomy with excoriation/erythema of the surrounding skin jtube drainage) Edema: No Neurological: Yes: Alert Labs: CBC, BMP 06/17/18 07:50 06/17/18 07:50 cultures pending Imaging - Results Chest X-ray: Report Reviewed, Image Reviewed Cat Scan: Pending Problem List - Problems (1) Fever Code(s): R50.9 - FEVER, UNSPECIFIED (2) Cerebral palsy Code(s): G80.9 - CEREBRAL PALSY, UNSPECIFIED (3) Seizures Code(s): R56.9 - UNSPECIFIED CONVULSIONS Assessment/Plan fevers- ?cellulitis of the abdomen, congestion is new will continue vanco/zosyn for now and f/u cultures possible aspiration? probable ileus d/w hospitalist
--- NOTE | 2018-06-17 12:35 | EKG ---
Test Reason : Blood Pressure : / mmHG Vent. Rate : 103 BPM Atrial Rate : 103 BPM P-R Int : 120 ms QRS Dur : 080 ms QT Int : 348 ms P-R-T Axes : 071 053 069 degrees QTc Int : 455 ms SINUS TACHYCARDIA POSSIBLE LEFT ATRIAL ENLARGEMENT BORDERLINE ECG NO PREVIOUS ECGS AVAILABLE Confirmed by Piotr Blackwood ([id number]) on 06/17/2018 12:34:50 PM Referred By: Confirmed By:Piotr Blackwood
--- NOTE | 2018-06-17 12:43 | PN ---
Progress Note (short form) - Note Progress Note: Subjective: unable to obtain hx. records form [facility] reviewed. had fever 101 and tachycardia. per aid at bedside, chest congestion and mouth secretions were new. abd is distended per her . Objective: Vital Signs: Last Vital Signs Temp Pulse Resp BP Pulse Ox 98.6 F 100 H 18 122/84 98 06/17/18 09:15 18 09:15 06/17/18 09:15 06/17/18 09:15 06/17/18 09:15 Laboratory Results - last 24 hr 06/16/18 06/16/18 06/16/18 23:18 23:18 23:18 WBC 11.5 H RBC 4.94 Hgb 12.0 Hct 37.0 MCV 74.9 L MCH 24.3 L MCHC 32.4 RDW 19.1 H Plt Count 696 H MPV 7.4 L Absolute Neuts (auto) 8.4 H Neutrophils % 72.9 Lymphocytes % 12.6 Monocytes % 10.6 H Eosinophils % 2.3 Basophils % 1.6 Nucleated RBC % 0 Retic Count PT with INR 13.80 H INR 1.17 H PTT (Actin FS) 33.4 VBG pH POC VBG pCO2 POC VBG pO2 Mixed VBG HCO3 Sodium 141 Potassium 4.8 Chloride 101 Carbon Dioxide 30 Anion Gap 10 BUN 65 H Creatinine 1.2 Creat Clearance w eGFR > 60 Random Glucose 106 Lactic Acid Calcium 9.4 Phosphorus Magnesium Ferritin Total Bilirubin 0.3 GGT AST 58 H ALT 49 Alkaline Phosphatase 125 H Creatine Kinase 94 CK-MB (CK-2) < 1.0 Troponin I Total Protein 8.7 H Albumin 3.2 L Prealbumin TSH Stool Occult Blood Blood Type Antibody Screen 06/16/18 06/16/18 06/16/18 23:18 23:18 23:18 WBC RBC Hgb Hct MCV MCH MCHC RDW Plt Count MPV Absolute Neuts (auto) Neutrophils % Lymphocytes % Monocytes % Eosinophils % Basophils % Nucleated RBC % Retic Count PT with INR INR PTT (Actin FS) VBG pH POC VBG pCO2 POC VBG pO2 Mixed VBG HCO3 Sodium Potassium Chloride Carbon Dioxide Anion Gap BUN Creatinine Creat Clearance w eGFR Random Glucose Lactic Acid 1.6 Calcium Phosphorus Magnesium Ferritin Total Bilirubin GGT AST ALT Alkaline Phosphatase Creatine Kinase CK-MB (CK-2) Troponin I < 0.02 Total Protein Albumin Prealbumin TSH Stool Occult Blood Blood Type Cancelled Antibody Screen Cancelled 06/16/18 06/17/18 06/17/18 23:24 05:45 07:50 WBC RBC Hgb Hct MCV MCH MCHC RDW Plt Count MPV Absolute Neuts (auto) Neutrophils % Lymphocytes % Monocytes % Eosinophils % Basophils % Nucleated RBC % Retic Count PT with INR INR PTT (Actin FS) VBG pH 7.42 POC VBG pCO2 47.2 POC VBG pO2 39.7 Mixed VBG HCO3 29.7 H Sodium Potassium Chloride Carbon Dioxide Anion Gap BUN Creatinine Creat Clearance w eGFR Random Glucose Lactic Acid 0.6 Calcium Phosphorus Magnesium Ferritin Total Bilirubin GGT AST ALT Alkaline Phosphatase Creatine Kinase CK-MB (CK-2) Troponin I Total Protein Albumin Prealbumin TSH Stool Occult Blood Negative Blood Type Antibody Screen 06/17/18 06/17/18 06/17/18 07:50 07:50 07:50 WBC 9.2 RBC 4.82 Hgb 11.4 L Hct 36.2 MCV 75.1 L MCH 23.6 L MCHC 31.4 L RDW 18.9 H Plt Count 525 H D MPV 7.3 L Absolute Neuts (auto) 6.3 Neutrophils % 68.8 Lymphocytes % 20.2 D Monocytes % 8.1 Eosinophils % 2.6 Basophils % 0.3 Nucleated RBC % 0 Retic Count PT with INR 12.90 INR 1.09 PTT (Actin FS) 25.5 VBG pH POC VBG pCO2 POC VBG pO2 Mixed VBG HCO3 Sodium 141 Potassium 4.0 Chloride 104 Carbon Dioxide 29 Anion Gap 8 BUN 51 H Creatinine 0.8 Creat Clearance w eGFR > 60 Random Glucose 108 H Lactic Acid Calcium 9.3 Phosphorus 3.8 Magnesium 2.8 H Ferritin 360.9 Total Bilirubin 0.5 GGT AST 35 ALT 47 Alkaline Phosphatase 112 Creatine Kinase CK-MB (CK-2) Troponin I < 0.02 Total Protein 8.2 Albumin 3.1 L Prealbumin TSH 1.07 Stool Occult Blood Blood Type Antibody Screen 06/17/18 06/17/18 07:50 07:50 WBC RBC Hgb Hct MCV MCH MCHC RDW Plt Count MPV Absolute Neuts (auto) Neutrophils % Lymphocytes % Monocytes % Eosinophils % Basophils % Nucleated RBC % Retic Count 0.88 PT with INR INR PTT (Actin FS) VBG pH POC VBG pCO2 POC VBG pO2 Mixed VBG HCO3 Sodium Potassium Chloride Carbon Dioxide Anion Gap BUN Creatinine Creat Clearance w eGFR Random Glucose Lactic Acid Calcium Phosphorus Magnesium Ferritin Total Bilirubin GGT 234 H AST ALT Alkaline Phosphatase Creatine Kinase CK-MB (CK-2) Troponin I Total Protein Albumin Prealbumin 33.0 TSH Stool Occult Blood Blood Type Antibody Screen Imaging: prelim CT report reviewed. unable to open actual image. CT of chest image and prelim report reviewed. Physical Exam: NAD , smiling. gurgling . CV: RRR Lungs: decreased breath sounds at R base Ext : muscle atrophy . on legs . hands with wrythematous , hyperpigmented areas on R hand. Abd: distended and has absent BS. colostomy tube, and jejunostomy tub with leakage around tubes and excoriated erythematous skin on abd wall and around tubes. 4 cc of fluid in colostomy tub. ASSESSMENT AND PLAN: Unfortunate 37 y/o man with h/o MR, congenital quadriplegia , cerebral palsy, seizure disorder, Hip dislocation, GERD, thyroid disease , scoliosis chronic GI bleed, prolonged Qtc, B thalasemia trait , and other medical problems who presented form [facility] with hypoxia 87%, fever , and tachycardia. he was found to be hypotensive in ER. 1- Fever: unsure of source, aspiration Pneumonitis /pNA, ileus , or skin . - cont Abx empirically - MRSA screen - d/w Dr. Phillip 2- Hypotension : possibly volume depleted. BP and BUN/Cr dropped after hydration sepsis in DDX. - cont IVF - Monitor 3- Possible aspiration event . monitor for infiltrate frequent suction 4- Ileus : doubt obstruction. final CT report pending - d/w Dr. Ellis - cont conservative management - IVF , NPO . hold TF - repeat KUB tomorrow 6- h/o Seizure : cont tiagabine. spoke to [facility] to send the medication ( we jaguar't have ) 7- Nutrition : hold TF ( Vital 1.5, 60cc/hr 6pm to 2 pm . with 25 cc free water /hr , with 300 cc water flushes q8h) 8- apply jeramy oxide on abd wall excoriated areas 9- elevated LFTS . improved HLOC Spoke to [facility]. Mom makes decisions for him. Full code . SBP was 70 last night . RN was asked to send his seizure medication MEds were reconciled and updated in EMR Mom called: [phone]. message left. Visit type - Emergency Visit Emergency Visit: Yes ED Registration Date: 06/16/18 Care time: The patient presented to the Emergency Department on the above date and was hospitalized for further evaluation of their emergent condition. - New Patient This patient is new to me today: Yes Date on this admission: 06/17/18 - Critical Care Critical Care patient: No - Discharge Referral Referred to [facility] Med P.C.: No
[2018-06-17] MEDS ORDERED: DEXTROSE 5%-WATER - 50 ML IVPB ONE ×2 (13:31→17:01)
[2018-06-17] MEDS ORDERED: PIPERACILLIN/TAZOBACTAM 3.375 GM VIAL IVPB ONE ×2 (13:31→17:01)
[2018-06-17] MEDS: PIPERACILLIN/TAZOB 3.375 GM 3.375 GM in DEXTROSE 5%-WATER - 50 ML IVPB SCH ×2 (13:38→17:14)
[2018-06-17] MEDS: HEPARIN NA (PORCINE) 5,000 UNITS/ML 1ML VIAL SQ SCH ×2 (14:11→21:05)
[2018-06-17] MEDS: VANCOMYCIN 1 GRAM (PRE-DOCKED) 1,000 MG/250 ML BAG IVPB SCH (14:15)
[2018-06-17 16:46] LABS: URINE APPEARANCE CLEAR; URINE BILIRUBIN NEGATIVE (<2.0 mg/dL); URINE COLOR YELLOW; URINE GLUCOSE (UA) 1+ (NEGATIVE)
[2018-06-17 16:47] LABS: URINE KETONE TRACE (NEGATIVE); URINE LEUK ESTERASE NEGATIVE (NEGATIVE); URINE NITRITE NEGATIVE (NEGATIVE); URINE PROTEIN 1+ (NEGATIVE); URINE UROBILINOGEN NORMAL mg/dL (0.2-1.0)
[2018-06-17 16:49] LABS: EPI CELLS RARE /HPF (FEW)
[2018-06-17] MEDS: POTASSIUM CHLORIDE 10 MEQ in DEXTROSE 5%-NORMAL SALINE 1,000 ML IVPB SCH (17:13)
[2018-06-18] MEDS: VANCOMYCIN 1 GRAM (PRE-DOCKED) 1,000 MG/250 ML BAG IVPB SCH ×2 (00:57→13:28)
[2018-06-18] MEDS ORDERED: DEXTROSE 5%-WATER - 50 ML IVPB ONE ×3 (01:31→16:43)
[2018-06-18] MEDS ORDERED: PIPERACILLIN/TAZOBACTAM 3.375 GM VIAL IVPB ONE ×3 (01:31→16:43)
[2018-06-18] MEDS: PIPERACILLIN/TAZOB 3.375 GM 3.375 GM in DEXTROSE 5%-WATER - 50 ML IVPB SCH ×3 (02:25→17:07)
[2018-06-18] MEDS: HEPARIN NA (PORCINE) 5,000 UNITS/ML 1ML VIAL SQ SCH ×3 (05:17→22:12)
[2018-06-18 07:52] LABS: BASO % 2.4 % (0-2.0); EOS % 4.5 % (0-4.5); LYMPH % 25.4 % (8-40); MCH 23.7 pg (25.7-33.7); MCHC 31.4 g/dl (32.0-35.9); MEAN CELL VOLUME 75.3 fl (80-96); MEAN PLT VOLUME 7.3 fl (7.5-11.1); MONO % 12.9 % (3.8-10.2); NEUT % 54.8 % (42.8-82.8); PLATELET COUNT 490 K/MM3 (134-434); RBC 4.64 M/mm3 (4.00-5.60); RDW 19.3 % (11.9-15.9); WHITE BLOOD COUNT 7.4 K/mm3 (4.0-10.0)
[2018-06-18 07:53] LABS: INR 1.17 (0.83-1.09); PROTHROMBIN TIME (PATIENT) 13.8 SEC (9.7-13.0)
[2018-06-18] MEDS ORDERED: BISACODYL 10 MG SUPP.RECT RC PRN (08:22)
--- NOTE | 2018-06-18 08:44 | CONSULT ---
- Consultation REQUESTING PROVIDER: CONSULT REQUEST: We have been asked to surgically evaluate this patient for ( sacral decub). PCP:Frank Pruitt HISTORY OF PRESENT ILLNESS: PMHx obtained from chart (pt unable to provide history due to cerebral palsy and MR) 37 y/o M w/ PMHx MR, cerebral palsy, hyperthyroidism, B-thalassemia trait, monocular extropia (R), b/l pathological hip dislocations, scoliosis, h/o aspiration PNA, severe GERD, s/p PEG tube (10/2004), s/p jejunostomy feeding ( 2010), sent to ED from [facility] for fever. Vascular consulted for evaluation of sacral ulcer. PMHx: as above PSHx: as above Home Medications Medication Instructions Recorded Atenolol [Tenormin -] 37.5 mg PEG DAILY 06/16/18 Baclofen 10 mg PEG TID 06/16/18 Bisacodyl Suppository [Dulcolax 10 mg RC DAILY PRN 06/16/18 Suppository -] Clindamycin 1% Gel [Cleocin *Gel*] 1 applic TP HS 06/16/18 Ferrous Sulfate [Ferosul] 220 mg PEG DAILY 06/16/18 Fluticasone Prop 0.05% Nasal 1 - 2 spray NS DAILY 06/16/18 [Flonase -] Lactobacillus Acidophilus/Fos 1 each PEG BID 06/16/18 [Acidophilus Probiotic Tablet] Multivit-Minerals/Ferrous Fum 9 mg PEG DAILY 06/16/18 [Multivitamin Liquid] Nystatin Powder [Nystop Topical 15 gm TP BID 06/16/18 Powder -] Potassium Chloride [Potassium 10 meq PEG DAILY 06/16/18 Chloride Oral Liquid] Simethicone Liquid [Mylicon] 40 mg PEG QID 06/16/18 Tiagabine HCl [Gabitirl (Nf) -] 4 mg PEG TID 06/16/18 Tizanidine HCl 4 mg PEG QID 06/16/18 Zinc Gluconate 100 mg PEG DAILY 06/16/18 Zinc Oxide 20% Topical Oint 454 gm NR BID 06/16/18 Albuterol 0.083% Nebulizer Emeli 1 neb NEB Q4H 06/17/18 [Ventolin 0.083%] Clotrimazole/Betamethasone Dip 45 gm TP BID 06/17/18 [Clotrimazole-Betamethasone Crm] Mag Hydrox/Aluminum Hyd/Simeth 5 ml PEG TID 06/17/18 [Antacid Plus Anti-Gas Liquid] Protein Supplement [Promod] 30 ml GT BID 06/17/18 Water [Similac Sterilized Water] 300 ml PEG Q8H 06/17/18 Allergies Allergy/AdvReac Type Severity Reaction Status Date / Time No Known Allergies Allergy Verified 06/16/18 23:37 REVIEW OF SYSTEMS: unable to obtain due to MR/cerebral palsy PHYSICAL EXAM: GENERAL: Awake, in no acute distress. Abdomen: colostomy tube and jejunostomy tub with leakage, surrounding skin excoriated and erythematous Extremities: b/l ue/le with significant contractures. No le ulcers or heel ulcers Back/Sacrum: R hip with large (approx 8cm x3.5cm) scar from prior sacral ulcer. Small, .5cm punctate wound at center of healed ulcer, +tracking, serous drainage. No surrounding erythema. Vital Signs Temperature 99.2 F 06/18/18 06:14 Pulse Rate 96 H 06/18/18 06:14 Respiratory Rate 20 06/18/18 06:14 Blood Pressure 112/72 06/18/18 06:14 O2 Sat by Pulse Oximetry (%) 96 06/17/18 21:00 Lab Results WBC 7.4 K/mm3 (4.0-10.0) 06/18/18 06:30 RBC 4.64 M/mm3 (4.00-5.60) 06/18/18 06:30 Hgb 11.0 GM/dL (11.7-16.9) L 06/18/18 06:30 Hct 35.0 % (35.4-49) L 06/18/18 06:30 MCV 75.3 fl (80-96) L 06/18/18 06:30 MCHC 31.4 g/dl (32.0-35.9) L 06/18/18 06:30 RDW 19.3 % (11.9-15.9) H 06/18/18 06:30 Plt Count 490 K/MM3 (134-434) H 06/18/18 06:30 Sodium 141 mmol/L (136-145) 06/17/18 07:50 Potassium 4.0 mmol/L (3.5-5.1) 06/17/18 07:50 Chloride 104 mmol/L (98-107) 06/17/18 07:50 Carbon Dioxide 29 mmol/L (21-32) 06/17/18 07:50 Anion Gap 8 MMOL/L (8-16) 06/17/18 07:50 BUN 51 mg/dL (7-18) H 06/17/18 07:50 Creatinine 0.8 mg/dL (0.55-1.3) 06/17/18 07:50 Random Glucose 108 mg/dL (74-106) H 06/17/18 07:50 Calcium 9.3 mg/dL (8.5-10.1) 06/17/18 07:50 Blood Type Cancelled 06/16/18 23:18 Antibody Screen Cancelled 06/16/18 23:18 INR 1.17 (0.83-1.09) H 06/18/18 06:30 A/P: 37 y/o M w/ PMHx MR, cerebral palsy, hyperthyroidism, B-thalassemia trait, monocular extropia (R), b/l pathological hip dislocations, scoliosis, h/o aspiration PNA, severe GERD, s/p PEG tube (10/2004), s/p jejunostomy feeding ( 2010), sent to ED from [facility] for fever. Vascular consulted for evaluation of sacral ulcer. Large scar from prior healed sacral ulcer, small punctate opening which does not appear clinically infected. -Continue Allevyn/Optifoam to area change daily -Reposition every two hours while in bed -Air mattress recommended -Use drawsheets and Trendelenburg when repositioning to reduce friction and shear -Manageincontinence via timely cleansing, use of appropriate incontinence disposables and use of barrier ointment to intact skin -Ensure adequate hydration/nutrition, supplementation per primary team -Ensure off-loading to all bony areas (heels, ankles, hips and tailbone) with Allevyn/Optifoam -Keep skin clean and dry around abdominal tubes, place 4x4 gauze around tubes and change frequently d/w attending Dr Frank
[2018-06-18 08:50] LABS: ALK PHOS 98 U/L (45-117); ANION GAP 12 MMOL/L (8-16); BILIRUBIN,TOTAL 0.8 mg/dL (0.2-1); BLOOD UREA NITROGEN 37 mg/dL (7-18); CALCIUM 9.3 mg/dL (8.5-10.1); CHLORIDE 103 mmol/L (98-107); CO2 27 mmol/L (21-32); CREATININE 0.8 mg/dL (0.55-1.3); GLUCOSE,RANDOM 96 mg/dL (74-106); MAGNESIUM 2.7 mg/dL (1.8-2.4); PHOSPHOROUS 3.9 mg/dL (2.5-4.9); POTASSIUM 3.7 mmol/L (3.5-5.1); SGOT/AST 24 U/L (15-37); SGPT/ALT 37 U/L (13-61); SODIUM 142 mmol/L (136-145); TOT PROT 7.8 g/dl (6.4-8.2)
[2018-06-18] MEDS: ALBUTEROL SO4 0.083% IH SOL 2.5 MG/3 ML VIAL.NEB. NEB PRN (09:52)
[2018-06-18] MEDS ORDERED: MULTIVIT MINERALS PEG SCH (10:00)
[2018-06-18] MEDS ORDERED: ZINC GLUCONATE 100 MG PEG SCH (10:00)
[2018-06-18] MEDS ORDERED: [UNRECOGNIZED DRUG - OTHER] PEG SCH (10:00)
[2018-06-18] MEDS ORDERED: CLOTRIMAZOLE/BETAMET DIPROP 15 GM TUBE TP SCH (10:00)
[2018-06-18] MEDS ORDERED: FERROUS FUM PEG SCH (10:00)
[2018-06-18] MEDS ORDERED: FERROUS SULFATE 220 MG PEG SCH (10:00)
[2018-06-18] MEDS ORDERED: PATIENT'S OWN MEDICATION (NON-FORMULARY) (Zinc Oxide 20% Topical Oint 454 GM) NR SCH (10:00)
[2018-06-18] MEDS: LACTOBACILLUS ACIDOPHILUS 1 TABLET PEG SCH ×2 (10:12→22:12)
[2018-06-18] MEDS: TIAGABINE PO SCH (10:12)
[2018-06-18] MEDS: FLUTICASONE PROP 0.05% 16 GM NASAL SPRAY NS SCH (10:13)
[2018-06-18] MEDS: SIMETHICONE 40 MG/0.6 ML BOTTLE PEG SCH ×4 (10:13→22:13)
--- NOTE | 2018-06-18 12:13 | PN ---
Progress Note (short form) - Note Progress Note: clinically improved no fevers since admission not congested repeat cxray is clear chest /abd/pelvis ct report reviewed, no pneumonia, possible ileus Vital Signs Period Temp Pulse Resp BP Sys/Arauz Pulse Ox Last 24 Hr 98.1 F-99.2 F 94-116 20-20 112-134/70-92 96 cor-rrr lungs clear abd distended, +JT, less erythema surrounding ostomy ext no edema CBC, BMP 06/18/18 06:30 06/18/18 06:30 Microbiology 06/17/18 01:20 Abdomen Gram Stain - Final 06/17/18 01:20 Abdomen Wound Culture - Preliminary Non Lactose Fermenting Gnb Lactose Fermenting Neg Bacilli 06/17/18 06:51 Buttock - Right Gram Stain - Final 06/17/18 06:51 Buttock - Right Wound Culture - Preliminary Non Lactose Fermenting Gnb Lactose Fermenting Neg Bacilli Non Lactose Fermenting Gnb#2 Staphylococcus Latex Coag Pos Group D Strep Or Entero Coccus 06/16/18 23:24 Blood - Peripheral Venous Blood Culture - Preliminary NO GROWTH OBTAINED AFTER 24 HOURS, INCUBATION TO CONTINUE FOR 4 DAYS. 06/16/18 23:18 Blood - Peripheral Venous Blood Culture - Preliminary NO GROWTH OBTAINED AFTER 24 HOURS, INCUBATION TO CONTINUE FOR 4 DAYS. a/p fevers resolved donot suspect decubitus is infected no signs pneumonia on xray, ?aspiration, congestion appears resolved will d/c vancomycin +ileus on zosyn consider switch to po augmentin in am if ileus is resolved Problem List - Problems (1) Fever Code(s): R50.9 - FEVER, UNSPECIFIED (2) Cerebral palsy Code(s): G80.9 - CEREBRAL PALSY, UNSPECIFIED (3) Seizures Code(s): R56.9 - UNSPECIFIED CONVULSIONS
--- NOTE | 2018-06-18 13:11 | PN ---
Teaching Attending Note Name of Resident: Elizabet Valdes ATTENDING PHYSICIAN STATEMENT I saw and evaluated the patient. I reviewed the resident's note and discussed the case with the resident. I agree with the resident's findings and plan as documented. SUBJECTIVE: No events over night . OBJECTIVE: NAD , smiling. gurgling . mouth secretions CV: RRR Lungs: upper respiratory noises Ext : muscle atrophy on legs Abd: distended and has absent BS. colostomy tube, and jejunostomy tub with leakage around tubes and excoriated erythematous skin on abd wall and around tubes. skin: healing R posterior hip ulcer with a deep whole in middle with no discharge ASSESSMENT AND PLAN: Unfortunate 37 y/o man with h/o MR, congenital quadriplegia , cerebral palsy, seizure disorder, Hip dislocation, GERD, thyroid disease , scoliosis chronic GI bleed, prolonged Qtc, B thalasemia trait , and other medical problems who presented form [place] with hypoxia 87%, fever , and tachycardia. he was found to be hypotensive in ER. 1- Fever: no recurrence - cont Abx zosyn . off vanco - MRSA screen 2- Hypotension: possibly volume depleted. - IVF - Monitor 3- Possible aspiration event . monitor for infiltrate frequent suction 4- Ileus : KUB reviewed , still distended bowel loops - cont conservative management - IVF, NPO . hold TF - repeat KUB tomorrow 6- h/o Seizure : received medication form [facility]. cont 7- Nutrition : hold TF 8- apply jeramy oxide on abd wall excoriated areas HLOC will update mm today. and confirm code status ( full )
[2018-06-18] MEDS: POTASSIUM CHLORIDE 10 MEQ in DEXTROSE 5%-NORMAL SALINE 1,000 ML IVPB SCH ×2 (13:30→19:15)
--- NOTE | 2018-06-18 14:28 | PN ---
Physical Exam: SUBJECTIVE: Patient seen and examined. Colostomy bag changed. Thick yellow secretions from PEG tube noted. Discussion with Mother who is primary decision maker for Pt. revealed that Pt. was receently hospitalized and [facility] for an infection of unknown site, took and unknown antibiotic course and was discharged last week. Pt.'s mother is under the impression that the Baclofen and the Tizanidine is the source of hyperthermia, WBC and hypotension. Discussion with Dr. Rios revealed that this is inaccurate as Pt. has been on this medication regimen for a long time. Pt. is Full Code. OBJECTIVE: Vital Signs Period Temp Pulse Resp BP Sys/Arauz Pulse Ox Last 24 Hr 98.1 F-99.2 F 94-116 20-20 112-134/70-92 96 GENERAL: Awake, alert, in no acute distress. HEAD: Normal with no signs of trauma. EYES: Pupils equal, round and reactive to light, sclera anicteric, conjunctiva clear,. EARS, NOSE, THROAT: Ears normal, nares patent, oropharynx with white secretions and exudates. Moist mucous membranes. LUNGS: Coarse BS,no wheezing, no crackles HEART: Tachcycardic Regular rate and rhythm, normal S1 and S2 ABDOMEN: Soft, nontender, not distended, normoactive bowel sounds, raw lesions around gastrostomy tube and leaky J-tube, no guarding, no rebound, no masses MUSCULOSKELETAL: Scoliosis, with b/l hip deformities LOWER EXTREMITIES: 2+ dorsal pedal pulses, warm, well-perfused. No calf tenderness. No edema. SKIN: Warm, dry, dressings c/d/i Laboratory Results - last 24 hr 06/16/18 06/17/18 06/18/18 23:24 14:35 06:30 WBC 7.4 RBC 4.64 Hgb 11.0 L Hct 35.0 L MCV 75.3 L MCH 23.7 L MCHC 31.4 L RDW 19.3 H Plt Count 490 H MPV 7.3 L Absolute Neuts (auto) 4.0 Neutrophils % 54.8 D Lymphocytes % 25.4 D Monocytes % 12.9 H Eosinophils % 4.5 Basophils % 2.4 H D Nucleated RBC % 0 PT with INR INR VBG pH 7.42 POC VBG pCO2 47.2 POC VBG pO2 39.7 Mixed VBG HCO3 29.7 H Sodium Potassium Chloride Carbon Dioxide Anion Gap BUN Creatinine Creat Clearance w eGFR Random Glucose Calcium Phosphorus Magnesium Total Bilirubin AST ALT Alkaline Phosphatase Total Protein Albumin Urine Color Yellow Urine Appearance Clear Urine pH 5.0 Ur Specific Elmer 1.010 Urine Protein 1+ H Urine Glucose (UA) 1+ H Urine Ketones Trace H Urine Blood Negative Urine Nitrite Negative Urine Bilirubin Negative Urine Urobilinogen Normal Ur Leukocyte Esterase Negative Urine WBC (Auto) 4 Urine RBC (Auto) 3 Ur Epithelial Cells Rare 06/18/18 06/18/18 06:30 06:30 WBC RBC Hgb Hct MCV MCH MCHC RDW Plt Count MPV Absolute Neuts (auto) Neutrophils % Lymphocytes % Monocytes % Eosinophils % Basophils % Nucleated RBC % PT with INR 13.80 H INR 1.17 H VBG pH POC VBG pCO2 POC VBG pO2 Mixed VBG HCO3 Sodium 142 Potassium 3.7 Chloride 103 Carbon Dioxide 27 Anion Gap 12 BUN 37 H Creatinine 0.8 Creat Clearance w eGFR > 60 Random Glucose 96 Calcium 9.3 Phosphorus 3.9 Magnesium 2.7 H Total Bilirubin 0.8 AST 24 ALT 37 Alkaline Phosphatase 98 Total Protein 7.8 Albumin 3.0 L Urine Color Urine Appearance Urine pH Ur Specific Elmer Urine Protein Urine Glucose (UA) Urine Ketones Urine Blood Urine Nitrite Urine Bilirubin Urine Urobilinogen Ur Leukocyte Esterase Urine WBC (Auto) Urine RBC (Auto) Ur Epithelial Cells Active Medications Current Medications Albuterol Sulfate (Ventolin 0.083% Nebulizer Soln -) 1 amp NEB Q4H PRN PRN Reason: SHORT OF BREATH/WHEEZING Last Admin: 06/18/18 09:52 Dose: 1 amp Bisacodyl (Dulcolax Suppository -) 10 mg RC DAILY PRN PRN Reason: CONSTIPATION Clindamycin Phosphate (Cleocin 1% Gel -) 1 applic TP HS JALEN Clotrimazole (Lotrisone Cream (Small Tube)) applic TP BID [facility]ALEN Fluticasone Propionate (Flonase -) 1 spray NS DAILY [facility] Last Admin: 06/18/18 10:13 Dose: Not Given Heparin Sodium (Porcine) (Heparin -) 5,000 unit SQ TID [facility]ALEN Last Admin: 06/18/18 05:17 Dose: 5,000 unit Piperacillin Sod/Tazobactam (Sod 3.375 gm/ Dextrose) 50 mls @ 100 mls/hr IVPB Q8H-IV [facility]; Protocol Last Admin: 06/18/18 10:12 Dose: 100 mls/hr Potassium Chloride 10 meq/ (Dextrose/Sodium Chloride) 1,005 mls @ 42 mls/hr IVPB ASDIR [facility] Last Admin: 06/18/18 13:30 Dose: Not Given Lactobacillus Acidophilus (Bacid -) 1 tab PEG BID [facility] Last Admin: 06/18/18 10:12 Dose: 1 tab Non-Formulary Medication (Ferrous Sulfate [Ferosul]) 220 mg PEG DAILY [facility] Last Admin: 06/18/18 10:11 Dose: Not Given Non-Formulary Medication (Multivit-Minerals/Ferrous Fum [Multivitamin Liquid]) 9 mg PEG DAILY [facility] Last Admin: 06/18/18 10:11 Dose: Not Given (Tiagabine Hcl 4 Mg) Patient's Own Medication (Non- Formulary) 4 mg PEG TID [facility] Non-Formulary Medication (Zinc Gluconate [Zinc Gluconate]) 100 mg PEG DAILY [facility] Last Admin: 06/18/18 10:11 Dose: Not Given Non-Formulary Medication (Zinc Oxide 20% Topical Oint) 454 gm NR BID [facility] Last Admin: 06/18/18 10:12 Dose: Not Given Nystatin (Nystop Powder -) applic TP BID [facility] Petrolatum (Sensi-Care Protective Ointment) 1 applic TP BID [facility] Simethicone (Mylicon Liquid -) 40 mg PEG QID [facility] Last Admin: 06/18/18 10:13 Dose: Not Given Home Medications Medication Instructions Recorded Atenolol [Tenormin -] 37.5 mg PEG DAILY 06/16/18 Baclofen 10 mg PEG TID 06/16/18 Bisacodyl Suppository [Dulcolax 10 mg RC Q2D PRN 06/16/18 Suppository -] Clindamycin 1% Gel [Cleocin *Gel*] 1 applic TP HS 06/16/18 Ferrous Sulfate [Ferosul] 220 mg PEG DAILY 06/16/18 Fluticasone Prop 0.05% Nasal 2 spray NS DAILY 06/16/18 [Flonase -] Lactobacillus Acidophilus/Fos 1 each PEG BID 06/16/18 [Acidophilus Probiotic Tablet] Multivit-Minerals/Ferrous Fum 9 mg PEG DAILY 06/16/18 [Multivitamin Liquid] Nystatin Powder [Nystop Topical 15 gm TP BID 06/16/18 Powder -] Potassium Chloride [Potassium 10 meq PEG DAILY 06/16/18 Chloride Oral Liquid] Simethicone Liquid [Mylicon] 40 mg PEG QID 06/16/18 Tiagabine HCl [Gabitirl (Nf) -] 4 mg PEG TID 06/16/18 Tizanidine HCl 4 mg PEG QID 06/16/18 Zinc Gluconate 100 mg PEG DAILY 06/16/18 Zinc Oxide 20% Topical Oint 454 gm NR BID 06/16/18 Albuterol 0.083% Nebulizer Emeli 1 neb NEB Q4H 06/17/18 [Ventolin 0.083%] Clotrimazole/Betamethasone Dip 45 gm TP TID 06/17/18 [Clotrimazole-Betamethasone Crm] Mag Hydrox/Aluminum Hyd/Simeth 5 ml PEG TID 06/17/18 [Antacid Plus Anti-Gas Liquid] Protein Supplement [Promod] 30 ml GT BID 06/17/18 Water [Similac Sterilized Water] 300 ml PEG Q8H 06/17/18 Calcium Carbonate [Calcium] 1 tab PEG TID 06/18/18 ASSESSMENT/PLAN: A 37 y.o. M with PMHx of MR,HTN, partial seizures, s/p colostomy bag placement, s/p J-tube placement present with fevers, low blood pressure and elevated WBC. -Sepsis vs. Septic shock Temperature on admission was 98.2 however per chart review and talking with the aid Pt. had a subjective temperature WBCs: 11.5, BP: 81/61, subjective fever per nursing aids, and purulent discharge from J-tube, leaky colostomy bag with feces leaking over areas of raw flesh. CT A/P: Gastrostomy w/ Mucocele in anterior skin surface, small bowel ileus, cannot rule out obstruction, distended loops of bowel Hx. of MDR organisms, will consult Dr. Phillip. Pt. grew organisms that were susceptible to Clindamycin and Aztreonam. Start IVF- LR f/u BCx. f/u WCx. VBG appreciated D/C- Vanco C/w- Zosyn consider switching to PO Augmentin -Hypotension 2/2 sepsis Given 1L NS in ED c/w Abx. c/w IVF Pt. takes Tizanidine which has a known side effect of hypotension -Displaced J-tube F/u surgery consult recommendations, as per chart review this has happened before -Open wounds c/w Abx. Dr. Frank consult appreciated -Hyperthyroidism CT-Chest showed 10mm left thyroid nodule f/u TSH, if abnormal will get free T4, and T3 studies -Aspiration CT Chest shows LLL aspirate, w/o pneumonia Abx. will cover this. -HTN Hold Atenolol as BP is low -Constipation c/w ducolax suppositories FOBT- -Partial seizures c/w Tiagabine -Muscle Spasms hold baclofen and tizanidine because of blood pressure lowering effects -Beta Thalassemia Per chart review there is a history for B-thalassemia f/u Iron studies f/u reticulocytes -F/E/N LR @ 100ml/hr -DVT Ppx. SCDs Visit type - Emergency Visit Emergency Visit: Yes ED Registration Date: 06/16/18 Care time: The patient presented to the Emergency Department on the above date and was hospitalized for further evaluation of their emergent condition. - New Patient This patient is new to me today: No - Critical Care Critical Care patient: No - Discharge Referral Referred to [facility] No
[2018-06-18] MEDS: TIAGABINE HCL 4 MG PEG SCH ×2 (14:35→22:00)
--- NOTE | 2018-06-18 14:51 | PN ---
Progress Note (short form) - Note Progress Note: Surgery pt seen and examined. 37m with severe MR, ostomy and peg tube, admitted for sepsis. Ct shows ileus. pt currently afebrile. Gas in ostomy bag. abd- soft, nt Plan- agree that this is clinically an ileus and not mechanical. no indication for surgical exploration. The abd is not the source of sepsis. Pt appears to have some gut function with air in his ostomy.
--- NOTE | 2018-06-18 16:11 | CONS ---
DATE OF CONSULTATION: 06/18/2018 INPATIENT CONSULTATION REASON FOR CONSULTATION: Small bowel obstruction. This is a 37-year-old male with severe mental retardation. He has an ostomy as well as a feeding tube. He presented to [facility] and was admitted for fever, hypotension, tachycardia, and sepsis. He had a CAT scan of his abdomen and pelvis which was read by the sourcing engineer as likely ileus but cannot rule out a mechanical obstruction. Because of this, a surgical consultation was requested. The patient is nonverbal. He currently has gas within his ostomy bag. He has not been vomiting. PAST MEDICAL HISTORY: Significant for cerebral palsy, hypothyroid, beta thalassemia trait, scoliosis, aspiration pneumonia. He has no known drug allergies. HOME MEDICATIONS: Include baclofen, Dulcolax, iron, multivitamin, tiagabine, tizanidine, albuterol. FAMILY HISTORY: Noncontributory. SOCIAL HISTORY: Negative for alcohol. Negative for tobacco. REVIEW OF SYSTEMS: Unobtainable. PHYSICAL EXAMINATION: General: This is a contracted, 37-year-old male. HEENT: Head normocephalic. Sclerae anicteric. Neck: Contracted. Chest: Clear. Abdomen: Soft, nontender, nondistended. He has an ostomy in the left upper quadrant that is producing gas. He has a feeding tube that is in place. He is nontender. Extremities: Have contractures. REVIEW OF LABORATORY: His white blood cell count is normal at 7.4. Chemistries are unremarkable. IMAGING: As per HPI. ASSESSMENT: A 37-year-old male with cerebral palsy and severe developmental delay. He has sepsis and was admitted for sepsis and has CAT scan findings of likely ileus. I agree that this is a functional ileus and non-mechanical obstruction. He has no evidence of bowel compromise. The abdomen is not the source of his sepsis. He also has function in his ostomy, and likely his ileus is resolving. RECOMMENDATIONS: At this point, we would recommend continuing to treat for ileus and would not recommend surgical exploration. DO RANI LEON/[id number]
--- NOTE | 2018-06-18 18:32 | EKG ---
Test Reason : Blood Pressure : / mmHG Vent. Rate : 102 BPM Atrial Rate : 102 BPM P-R Int : 132 ms QRS Dur : 080 ms QT Int : 336 ms P-R-T Axes : 063 053 068 degrees QTc Int : 437 ms SINUS TACHYCARDIA POSSIBLE LEFT ATRIAL ENLARGEMENT BORDERLINE ECG WHEN COMPARED WITH ECG OF 16-JUN-2018 23:42, NO SIGNIFICANT CHANGE WAS FOUND Confirmed by ROSALBA SANZ MD ([id number]) on 06/18/2018 6:31:50 PM Referred By: Confirmed By:ROSALBA SANZ MD
[2018-06-18] MEDS ORDERED: CLINDAMYCIN PHOSPHATE 1% TOPICAL GEL 30 GM TUBE TP SCH (22:00)
[2018-06-18] MEDS: CLINDAMYCIN PHOSPHATE 1% TOPICAL GEL 30 GM TUBE TP SCH (22:12)
[2018-06-18] MEDS: NYSTATIN POWDER 100,000 UNITS/GM - 15 GM TOPICAL POWDER TP SCH (22:13)
[2018-06-18] MEDS: CLOTRIMAZOLE/BETAMET DIPROP 15 GM TUBE TP SCH (22:13)
[2018-06-18] MEDS: ZINC OXIDE 20% TOPICAL OINTMENT 30 GM TUBE TP SCH (22:14)
[2018-06-19] MEDS ORDERED: DEXTROSE 5%-WATER - 50 ML IVPB ONE ×3 (02:12→17:42)
[2018-06-19] MEDS ORDERED: PIPERACILLIN/TAZOBACTAM 3.375 GM VIAL IVPB ONE ×3 (02:12→17:41)
[2018-06-19] MEDS: PIPERACILLIN/TAZOB 3.375 GM 3.375 GM in DEXTROSE 5%-WATER - 50 ML IVPB SCH ×3 (02:46→17:51)
[2018-06-19] MEDS: HEPARIN NA (PORCINE) 5,000 UNITS/ML 1ML VIAL SQ SCH ×3 (05:20→21:06)
[2018-06-19] MEDS: TIAGABINE HCL 4 MG PEG SCH ×3 (05:22→21:07)
[2018-06-19 06:06] LABS: SERUM IRON SATURATION 9 % (15-55); TOTAL IRON BINDING CAPACITY 320 ug/dL (250-450); UIBC 290 ug/dL (111-343)
[2018-06-19] MEDS: ALBUTEROL SO4 0.083% IH SOL 2.5 MG/3 ML VIAL.NEB. NEB PRN (08:40)
[2018-06-19 08:53] LABS: HEMATOCRIT 32.6 % (35.4-49); HEMOGLOBIN 10.4 GM/dL (11.7-16.9); MCH 23.8 pg (25.7-33.7); MCHC 31.8 g/dl (32.0-35.9); MEAN CELL VOLUME 74.9 fl (80-96); MEAN PLT VOLUME 6.8 fl (7.5-11.1); PLATELET COUNT 503 K/MM3 (134-434); RBC 4.35 M/mm3 (4.00-5.60); RDW 18.6 % (11.9-15.9); WHITE BLOOD COUNT 6.6 K/mm3 (4.0-10.0)
[2018-06-19 09:25] LABS: ANION GAP 9 MMOL/L (8-16); BLOOD UREA NITROGEN 36 mg/dL (7-18); CALCIUM 9.1 mg/dL (8.5-10.1); CHLORIDE 104 mmol/L (98-107); CO2 29 mmol/L (21-32); CREATININE 1.4 mg/dL (0.55-1.3); GLUCOSE,RANDOM 92 mg/dL (74-106); MAGNESIUM 2.5 mg/dL (1.8-2.4); PHOSPHOROUS 4.1 mg/dL (2.5-4.9); POTASSIUM 3.4 mmol/L (3.5-5.1); SODIUM 143 mmol/L (136-145)
[2018-06-19] MEDS: SIMETHICONE 40 MG/0.6 ML BOTTLE PEG SCH ×4 (10:00→21:06)
[2018-06-19] MEDS: LACTOBACILLUS ACIDOPHILUS 1 TABLET PEG SCH ×2 (10:57→21:05)
[2018-06-19] MEDS: FERROUS SO4 300 MG/5 ML ORAL SOLN UNIT DOSE CUPS PEG SCH (10:57)
[2018-06-19] MEDS: FLUTICASONE PROP 0.05% 16 GM NASAL SPRAY NS SCH (10:59)
[2018-06-19] MEDS: NYSTATIN POWDER 100,000 UNITS/GM - 15 GM TOPICAL POWDER TP SCH ×2 (10:59→21:06)
[2018-06-19] MEDS: CLOTRIMAZOLE/BETAMET DIPROP 15 GM TUBE TP SCH ×2 (10:59→21:06)
[2018-06-19] MEDS: ZINC OXIDE 20% TOPICAL OINTMENT 30 GM TUBE TP SCH (11:00)
[2018-06-19] MEDS: ZINC OXIDE/PETROLATUM,WHITE 1 APPLIC OINT...G. TP SCH ×2 (11:00→21:05)
--- NOTE | 2018-06-19 13:27 | PN ---
Physical Exam: SUBJECTIVE: Patient seen and examined. No acute events overnight. OBJECTIVE: Vital Signs Period Temp Pulse Resp BP Sys/Arauz Pulse Ox Last 24 Hr 98.1 F-98.6 F 86-95 20-24 117-132/76-97 97 GENERAL: Awake, alert, in no acute distress, sleeping. HEAD: Normal with no signs of trauma. EYES: Pupils equal, round and reactive to light, sclera anicteric, conjunctiva clear,. EARS, NOSE, THROAT: Ears normal, nares patent, oropharynx with white secretions and exudates. Moist mucous membranes. LUNGS: Coarse BS, no wheezing, no crackles HEART: Tachcycardic Regular rate and rhythm, normal S1 and S2 ABDOMEN: Soft, nontender, not distended, normoactive bowel sounds, raw lesions around gastrostomy tube and J-tube, no guarding, no rebound, no masses MUSCULOSKELETAL: Scoliosis, with b/l hip deformities LOWER EXTREMITIES: 1+ left radial pulse, warm, well-perfused. No calf tenderness. No edema. SKIN: Warm, dry, dressings c/d/i Laboratory Results - last 24 hr 06/17/18 06/17/18 06/19/18 07:50 07:50 07:45 WBC 6.6 RBC 4.35 Hgb 10.4 L Hct 32.6 L MCV 74.9 L MCH 23.8 L MCHC 31.8 L RDW 18.6 H Plt Count 503 H MPV 6.8 L Sodium Potassium Chloride Carbon Dioxide Anion Gap BUN Creatinine Creat Clearance w eGFR Random Glucose Calcium Phosphorus Magnesium Iron 30 L TIBC 320 Iron Saturation 9 L Transferrin 253 06/19/18 07:45 WBC RBC Hgb Hct MCV MCH MCHC RDW Plt Count MPV Sodium 143 Potassium 3.4 L Chloride 104 Carbon Dioxide 29 Anion Gap 9 BUN 36 H Creatinine 1.4 H Creat Clearance w eGFR 56.72 Random Glucose 92 Calcium 9.1 Phosphorus 4.1 Magnesium 2.5 H Iron TIBC Iron Saturation Transferrin Active Medications Current Medications Albuterol Sulfate (Ventolin 0.083% Nebulizer Soln -) 1 amp NEB Q4H PRN PRN Reason: SHORT OF BREATH/WHEEZING Last Admin: 06/19/18 08:40 Dose: 1 amp Bisacodyl (Dulcolax Suppository -) 10 mg RC DAILY PRN PRN Reason: CONSTIPATION Clindamycin Phosphate (Cleocin 1% Gel -) 1 applic TP HS [facility] Last Admin: 06/18/18 22:12 Dose: 1 applic Clotrimazole (Lotrisone Cream (Small Tube)) 1 applic TP BID [facility] Last Admin: 06/19/18 10:59 Dose: 1 applic Ferrous Sulfate (Feosol) 300 mg PEG DAILY [facility] Last Admin: 06/19/18 10:57 Dose: 300 mg Fluticasone Propionate (Flonase -) 1 spray NS DAILY [facility] Last Admin: 06/19/18 10:59 Dose: Not Given Heparin Sodium (Porcine) (Heparin -) 5,000 unit SQ TID [facility] Last Admin: 06/19/18 05:20 Dose: 5,000 unit Piperacillin Sod/Tazobactam (Sod 3.375 gm/ Dextrose) 50 mls @ 100 mls/hr IVPB Q8H-IV [facility]; Protocol Last Admin: 06/19/18 10:57 Dose: 100 mls/hr Potassium Chloride 10 meq/ (Dextrose/Sodium Chloride) 1,005 mls @ 42 mls/hr IVPB ASDIR [facility] Last Admin: 06/18/18 19:15 Dose: 42 mls/hr Lactobacillus Acidophilus (Bacid -) 1 tab PEG BID [facility] Last Admin: 06/19/18 10:57 Dose: 1 tab Multi-Ingredient Ointment (Zinc Oxide) 1 applic TP BID [facility] Last Admin: 06/19/18 11:00 Dose: 1 applic (Tiagabine Hcl 4 Mg) Patient's Own Medication (Non- Formulary) 4 mg PEG TID [facility] Last Admin: 06/19/18 05:22 Dose: 4 mg Nystatin (Nystop Powder -) 1 applic TP BID [facility] Last Admin: 06/19/18 10:59 Dose: 1 applic Petrolatum (Sensi-Care Protective Ointment) 1 applic TP BID [facility] Last Admin: 06/19/18 11:00 Dose: 1 applic Simethicone (Mylicon Liquid -) 40 mg PEG QID [facility] Last Admin: 06/18/18 22:13 Dose: 40 mg Home Medications Medication Instructions Recorded Atenolol [Tenormin -] 37.5 mg PEG DAILY 06/16/18 Baclofen 10 mg PEG TID 06/16/18 Bisacodyl Suppository [Dulcolax 10 mg RC Q2D PRN 06/16/18 Suppository -] Clindamycin 1% Gel [Cleocin *Gel*] 1 applic TP HS 06/16/18 Ferrous Sulfate [Ferosul] 220 mg PEG DAILY 06/16/18 Fluticasone Prop 0.05% Nasal 2 spray NS DAILY 06/16/18 [Flonase -] Lactobacillus Acidophilus/Fos 1 each PEG BID 06/16/18 [Acidophilus Probiotic Tablet] Multivit-Minerals/Ferrous Fum 9 mg PEG DAILY 06/16/18 [Multivitamin Liquid] Nystatin Powder [Nystop Topical 15 gm TP BID 06/16/18 Powder -] Potassium Chloride [Potassium 10 meq PEG DAILY 06/16/18 Chloride Oral Liquid] Simethicone Liquid [Mylicon] 40 mg PEG QID 06/16/18 Tiagabine HCl [Gabitirl (Nf) -] 4 mg PEG TID 06/16/18 Tizanidine HCl 4 mg PEG QID 06/16/18 Zinc Gluconate 100 mg PEG DAILY 06/16/18 Zinc Oxide 20% Topical Oint 454 gm NR BID 06/16/18 Albuterol 0.083% Nebulizer Emeli 1 neb NEB Q4H 06/17/18 [Ventolin 0.083%] Clotrimazole/Betamethasone Dip 45 gm TP TID 06/17/18 [Clotrimazole-Betamethasone Crm] Mag Hydrox/Aluminum Hyd/Simeth 5 ml PEG TID 06/17/18 [Antacid Plus Anti-Gas Liquid] Protein Supplement [Promod] 30 ml GT BID 06/17/18 Water [Similac Sterilized Water] 300 ml PEG Q8H 06/17/18 Calcium Carbonate [Calcium] 1 tab PEG TID 06/18/18 ASSESSMENT/PLAN: A 37 y.o. M with PMHx of MR,HTN, partial seizures, s/p colostomy bag placement, s/p J-tube placement present with fevers, low blood pressure and elevated WBC. -Sepsis vs. Septic shock Temperature on admission was 98.2 however per chart review and talking with the aid Pt. had a subjective temperature WBCs: 11.5, BP: 81/61, subjective fever per nursing aids, and purulent discharge from J-tube, leaky colostomy bag with feces leaking over areas of raw flesh. CT A/P: Gastrostomy w/ Mucocele in anterior skin surface, small bowel ileus, cannot rule out obstruction, distended loops of bowel Hx. of MDR organisms, will consult Dr. Phillip. Pt. grew organisms that were susceptible to Clindamycin and Aztreonam. Start IVF- LR f/u BCx. f/u WCx. VBG appreciated D/C- Vanco C/w- Zosyn consider switching to PO Augmentin -Hypotension 2/2 sepsis Given 1L NS in ED c/w Abx. c/w IVF Pt. takes Tizanidine which has a known side effect of hypotension -Displaced J-tube F/u surgery consult recommendations, as per chart review this has happened before -Open wounds c/w Abx. Dr. Frank consult appreciated -Hyperthyroidism CT-Chest showed 10mm left thyroid nodule f/u TSH, if abnormal will get free T4, and T3 studies -Aspiration CT Chest shows LLL aspirate, w/o pneumonia Abx. will cover this. -HTN Hold Atenolol as BP is low -Constipation c/w ducolax suppositories FOBT- -Partial seizures c/w Tiagabine -Muscle Spasms hold baclofen and tizanidine because of blood pressure lowering effects -Beta Thalassemia Per chart review there is a history for B-thalassemia f/u Iron studies f/u reticulocytes -F/E/N LR @ 100ml/hr -DVT Ppx. SCDs Visit type - Emergency Visit Emergency Visit: Yes ED Registration Date: 06/16/18 Care time: The patient presented to the Emergency Department on the above date and was hospitalized for further evaluation of their emergent condition. - New Patient This patient is new to me today: No - Critical Care Critical Care patient: No - Discharge Referral Referred to [facility] Med P.C.: No
[2018-06-19] MEDS ORDERED: POTASSIUM CHLORIDE 10 MEQ in DEXTROSE 5%-NORMAL SALINE 1,000 ML IVPB SCH (14:12)
--- NOTE | 2018-06-19 14:26 | PN ---
Teaching Attending Note Name of Resident: Calvin Jacobo ATTENDING PHYSICIAN STATEMENT I saw and evaluated the patient. I reviewed the resident's note and discussed the case with the resident. I agree with the resident's findings and plan as documented. SUBJECTIVE: No events over night OBJECTIVE: NAD, smiling. mouth secretions CV: RRR Lungs: CTAB posteriorly Ext : muscle atrophy on legs Abd: less distended. has hypoactive BS on R side. colostomy tube with air and 3 cc of clear liquids. jejunostomy tub with leakage around tubes and excoriated erythematous skin on abd wall and around tubes. liquid green stool on sheets ASSESSMENT AND PLAN: Unfortunate 37 y/o man with h/o MR, congenital quadriplegia , cerebral palsy, seizure disorder, Hip dislocation, GERD, thyroid disease , scoliosis chronic GI bleed, prolonged Qtc, B Thalasemia trait , and other medical problems who presented form [place] with hypoxia 87%, fever , and tachycardia. he was found to be hypotensive in ER. 1- Fever: no recurrence - cont Abx . -send liquid stool for c diff 2- Hypotension: possibly volume depleted. resolved - increase IVF due to OTIS . - Monitor 3- OTIS: either prerenal or due to meds. unremarkable kidneys on CT on admission - increase IVF - urine and serum eiosinophils 4- Ileus: Abd is still distended, but has some BS today. has air in ostomy bag, and liquid stool from rectum - cont conservative management - IVF, NPO . hold TF - repeat KUB today 6- h/o Seizure : cont tiagabine 7- Nutrition : hold TF. increase Kcl in IVF 8- apply jeramy oxide on abd wall excoriated areas HLOC
[2018-06-19] MEDS ORDERED: PT OWN MED DRAWER 7, Y5N ONE ×2 (15:29→17:41)
[2018-06-19] MEDS: MULTIVIT-MINERALS ORAL LIQUID PEG SCH (15:38)
[2018-06-19] MEDS: D5-NS + 20 MEQ KCL - 20 MEQ/1,000 ML INFUS.BAG IV SCH ×2 (15:39→20:13)
[2018-06-19] MEDS: TIAGABINE PO SCH (15:41)
[2018-06-19] MEDS: CLINDAMYCIN PHOSPHATE 1% TOPICAL GEL 30 GM TUBE TP SCH (21:05)
[2018-06-20] MEDS ORDERED: PIPERACILLIN/TAZOBACTAM 3.375 GM VIAL IVPB ONE ×2 (02:05→09:39)
[2018-06-20] MEDS: PIPERACILLIN/TAZOB 3.375 GM 3.375 GM in DEXTROSE 5%-WATER - 50 ML IVPB SCH ×2 (02:35→09:56)
[2018-06-20] MEDS ORDERED: PT OWN MED DRAWER 7, Y5N ONE ×2 (05:52→09:06)
[2018-06-20] MEDS: HEPARIN NA (PORCINE) 5,000 UNITS/ML 1ML VIAL SQ SCH (06:09)
[2018-06-20] MEDS: TIAGABINE HCL 4 MG PEG SCH (06:09)
[2018-06-20 08:27] LABS: ANION GAP 9 MMOL/L (8-16); BLOOD UREA NITROGEN 29 mg/dL (7-18); CALCIUM 9.3 mg/dL (8.5-10.1); CHLORIDE 110 mmol/L (98-107); CO2 26 mmol/L (21-32); CREATININE 1.4 mg/dL (0.55-1.3); GLUCOSE,RANDOM 108 mg/dL (74-106); MAGNESIUM 2.3 mg/dL (1.8-2.4); PHOSPHOROUS 3.5 mg/dL (2.5-4.9); POTASSIUM 3.5 mmol/L (3.5-5.1); SODIUM 145 mmol/L (136-145)
--- NOTE | 2018-06-20 08:28 | PN ---
Teaching Attending Note Name of Resident: Calvin Jacobo ATTENDING PHYSICIAN STATEMENT I saw and evaluated the patient. I reviewed the resident's note and discussed the case with the resident. I agree with the resident's findings and plan as documented. SUBJECTIVE: Patient is feeling better, happy smiling. NAD. OBJECTIVE: Vital Signs Temperature 98.0 F 06/20/18 06:35 Pulse Rate 87 06/20/18 06:35 Respiratory Rate 20 06/20/18 06:35 Blood Pressure 130/89 06/20/18 06:35 O2 Sat by Pulse Oximetry (%) 92 L 06/19/18 21:00 GENERAL: Awake, alert, in no acute distress, sleeping. HEAD: Normal with no signs of trauma. EYES: Pupils equal, round and reactive to light, sclera anicteric, conjunctiva clear,. EARS, NOSE, THROAT: Ears normal, oropharynx with white secretions and exudates. Moist mucous membranes. LUNGS: Coarse BS, no wheezing, no crackles HEART: RRR, normal S1 and S2 ABDOMEN: Soft, nontender, ND, normoactive bowel sounds, raw lesions around gastrostomy tube and J-tube presented with from the center, no guarding, no rebound, no masses MUSCULOSKELETAL: Scoliosis, with b/l hip deformities EXTREMITIES: 1+ left radial pulse, warm, well-perfused. No calf tenderness. No edema. SKIN: Warm, dry, dressings c/d/i CBCD WBC 6.6 K/mm3 (4.0-10.0) 06/19/18 07:45 RBC 4.35 M/mm3 (4.00-5.60) 06/19/18 07:45 Hgb 10.4 GM/dL (11.7-16.9) L 06/19/18 07:45 Hct 32.6 % (35.4-49) L 06/19/18 07:45 MCV 74.9 fl (80-96) L 06/19/18 07:45 MCHC 31.8 g/dl (32.0-35.9) L 06/19/18 07:45 RDW 18.6 % (11.9-15.9) H 06/19/18 07:45 Plt Count 503 K/MM3 (134-434) H 06/19/18 07:45 MPV 6.8 fl (7.5-11.1) L 06/19/18 07:45 CMP Sodium 145 mmol/L (136-145) 06/20/18 07:10 Potassium 3.5 mmol/L (3.5-5.1) 06/20/18 07:10 Chloride 110 mmol/L (98-107) H 06/20/18 07:10 Carbon Dioxide 26 mmol/L (21-32) 06/20/18 07:10 Anion Gap 9 MMOL/L (8-16) 06/20/18 07:10 BUN 29 mg/dL (7-18) H 06/20/18 07:10 Creatinine 1.4 mg/dL (0.55-1.3) H 06/20/18 07:10 Creat Clearance w eGFR 56.72 (>60) 06/20/18 07:10 Random Glucose 108 mg/dL (74-106) H 06/20/18 07:10 Calcium 9.3 mg/dL (8.5-10.1) 06/20/18 07:10 Total Bilirubin 0.8 mg/dL (0.2-1) 06/18/18 06:30 AST 24 U/L (15-37) 06/18/18 06:30 ALT 37 U/L (13-61) 06/18/18 06:30 Alkaline Phosphatase 98 U/L (45-117) 06/18/18 06:30 Total Protein 7.8 g/dl (6.4-8.2) 06/18/18 06:30 Albumin 3.0 g/dl (3.4-5.0) L 06/18/18 06:30 CARDIAC ENZYMES Creatine Kinase 94 IU/L (26-308) 06/16/18 23:18 Troponin I < 0.02 ng/ml (0.00-0.05) 06/17/18 07:50 Current Medications Generic Name Dose Route Start Last Admin Trade Name Freq PRN Reason Stop Dose Admin Albuterol Sulfate 1 amp 06/17/18 06:22 06/19/18 08:40 Ventolin 0.083% Nebulizer Soln - NEB 1 amp Q4H PRN Administration SHORT OF BREATH/WHEEZING Bisacodyl 10 mg 06/18/18 08:22 Dulcolax Suppository - RC DAILY PRN CONSTIPATION Clindamycin Phosphate 1 applic 06/18/18 22:00 06/19/18 21:05 Cleocin 1% Gel - TP 1 applic HS JALEN Administration Clotrimazole 1 applic 06/18/18 22:00 06/19/18 21:06 Lotrisone Cream (Small Tube) TP 1 applic BID JALEN Administration Ferrous Sulfate 300 mg 06/19/18 10:00 06/19/18 10:57 Feosol PEG 300 mg DAILY JALEN Administration Fluticasone Propionate 1 spray 06/18/18 10:00 06/19/18 10:59 Flonase - NS Not Given DAILY JALEN Heparin Sodium (Porcine) 5,000 unit 06/17/18 14:00 06/20/18 06:09 Heparin - SQ 5,000 unit TID JALEN Administration Piperacillin Sod/Tazobactam 50 mls @ 100 mls/hr 06/17/18 13:00 06/20/18 02:35 Sod 3.375 gm/ Dextrose IVPB 100 mls/hr Q8H-IV JALEN Administration Protocol Dextrose/Sodium Chloride 20 meq in 1,000 mls @ 75 mls/hr 06/19/18 14:14 06/19 20:13 Dextrose 5%-Normal Saline+20 Meq Kcl - IV 75 mls/hr ASDIR JALEN Administration Lactobacillus Acidophilus 1 tab 06/18/18 10:00 06/19/18 21:05 Bacid - PEG 1 tab BID JALEN Administration (Tiagabine Hcl 4 Mg) 4 mg 06/18/18 14:00 06/20/18 06:09 Patient's Own PEG 4 mg Medication (Non- TID JALEN Administration Formulary) Nystatin 1 applic 06/18/18 22:00 06/19/18 21:06 Nystop Powder - TP 1 applic BID JALEN Administration Petrolatum 1 applic 06/18/18 22:00 06/19/18 21:05 Sensi-Care Protective Ointment TP 1 applic BID JALEN Administration Simethicone 40 mg 06/18/18 10:00 06/19/18 21:06 Mylicon Liquid - PEG 40 mg QID JALEN Administration Home Medications Medication Instructions Recorded Atenolol [Tenormin -] 37.5 mg PEG DAILY 06/16/18 Baclofen 10 mg PEG TID 06/16/18 Bisacodyl Suppository [Dulcolax 10 mg RC Q2D PRN 06/16/18 Suppository -] Clindamycin 1% Gel [Cleocin *Gel*] 1 applic TP HS 06/16/18 Ferrous Sulfate [Ferosul] 220 mg PEG DAILY 06/16/18 Fluticasone Prop 0.05% Nasal 2 spray NS DAILY 06/16/18 [Flonase -] Lactobacillus Acidophilus/Fos 1 each PEG BID 06/16/18 [Acidophilus Probiotic Tablet] Multivit-Minerals/Ferrous Fum 9 mg PEG DAILY 06/16/18 [Multivitamin Liquid] Nystatin Powder [Nystop Topical 15 gm TP BID 06/16/18 Powder -] Potassium Chloride [Potassium 10 meq PEG DAILY 06/16/18 Chloride Oral Liquid] Simethicone Liquid [Mylicon] 40 mg PEG QID 06/16/18 Tiagabine HCl [Gabitirl (Nf) -] 4 mg PEG TID 06/16/18 Tizanidine HCl 4 mg PEG QID 06/16/18 Zinc Gluconate 100 mg PEG DAILY 06/16/18 Zinc Oxide 20% Topical Oint 454 gm NR BID 06/16/18 Albuterol 0.083% Nebulizer Emeli 1 neb NEB Q4H 06/17/18 [Ventolin 0.083%] Clotrimazole/Betamethasone Dip 45 gm TP TID 06/17/18 [Clotrimazole-Betamethasone Crm] Mag Hydrox/Aluminum Hyd/Simeth 5 ml PEG TID 06/17/18 [Antacid Plus Anti-Gas Liquid] Protein Supplement [Promod] 30 ml GT BID 06/17/18 Water [Similac Sterilized Water] 300 ml PEG Q8H 06/17/18 Calcium Carbonate [Calcium] 1 tab PEG TID 06/18/18 ASSESSMENT AND PLAN: Patient is a 37 y/o male from with h/o MR, congenital quadriplegia , cerebral palsy, seizure disorder, Hip dislocation, GERD, thyroid disease , scoliosis chronic GI bleed, prolonged Qtc, B Thalasemia trait , and other medical problems who presented form [facility] with hypoxia 87%, fever , and tachycardia and was found to be hypotensive in ER. # Sepsis with Fever with tachycardia /hypotension due to possible aspiration PNA : completed Zosyn and being discharged on Augmentin per Gtube x 3 more days # OTIS: due to having constipation , Patient had a BM today and repeat Cr. improved from 1.4-->1.2 , will continue feeding and free water with the feeding # Ileus:resolved. had a BM this morning # h/o Seizure : cont tiagabine # Nutrition : continue TF. # Excoriation of abdominal wall : apply jeramy oxide accepted back to the [facility] home.
[2018-06-20 08:53] LABS: BASO % 0.9 % (0-2.0); EOS % 6.9 % (0-4.5); HEMATOCRIT 33.9 % (35.4-49); HEMOGLOBIN 11.3 GM/dL (11.7-16.9); LYMPH % 23.1 % (8-40); MCHC 33.5 g/dl (32.0-35.9); MEAN CELL VOLUME 74.6 fl (80-96); MEAN PLT VOLUME 7.6 fl (7.5-11.1); MONO % 7.2 % (3.8-10.2); NEUT % 61.9 % (42.8-82.8); PLATELET COUNT 463 K/MM3 (134-434); RBC 4.54 M/mm3 (4.00-5.60); RDW 18.7 % (11.9-15.9); WHITE BLOOD COUNT 7.2 K/mm3 (4.0-10.0)
[2018-06-20] MEDS: LACTOBACILLUS ACIDOPHILUS 1 TABLET PEG SCH (09:14)
[2018-06-20] MEDS: FERROUS SO4 300 MG/5 ML ORAL SOLN UNIT DOSE CUPS PEG SCH (09:14)
[2018-06-20] MEDS: SIMETHICONE 40 MG/0.6 ML BOTTLE PEG SCH (09:14)
[2018-06-20] MEDS: MULTIVIT-MINERALS ORAL LIQUID PEG SCH (09:16)
[2018-06-20] MEDS: FLUTICASONE PROP 0.05% 16 GM NASAL SPRAY NS SCH (09:16)
[2018-06-20] MEDS: CLOTRIMAZOLE/BETAMET DIPROP 15 GM TUBE TP SCH (09:17)
[2018-06-20] MEDS: NYSTATIN POWDER 100,000 UNITS/GM - 15 GM TOPICAL POWDER TP SCH (09:18)
[2018-06-20] MEDS ORDERED: DEXTROSE 5%-WATER - 50 ML IVPB ONE (09:39)
[2018-06-20] MEDS: D5-NS + 20 MEQ KCL - 20 MEQ/1,000 ML INFUS.BAG IV SCH (09:55)
--- NOTE | 2018-06-20 10:09 | PN ---
Physical Exam: SUBJECTIVE: Patient seen and examined OBJECTIVE: Vital Signs Period Temp Pulse Resp BP Sys/Arauz Pulse Ox Last 24 Hr 97.4 F-98.0 F 86-91 18-20 127-134/89-94 92 GENERAL: The patient is awake, alert, and fully oriented, in no acute distress. HEAD: Normal with no signs of trauma. EYES: PERRL, extraocular movements intact, sclera anicteric, conjunctiva clear. No ptosis. ENT: Ears normal, nares patent, oropharynx clear without exudates, moist mucous membranes. NECK: Trachea midline, full range of motion, supple. LUNGS: Breath sounds equal, clear to auscultation bilaterally, no wheezes, no crackles, no accessory muscle use. HEART: Regular rate and rhythm, S1, S2 without murmur, rub or gallop. ABDOMEN: Soft, nontender, nondistended, normoactive bowel sounds, no guarding, no rebound, no hepatosplenomegaly, no masses. EXTREMITIES: 2+ pulses, warm, well-perfused, no edema. NEUROLOGICAL: Cranial nerves II through XII grossly intact. Normal speech, gait not observed. PSYCH: Normal mood, normal affect. SKIN: Warm, dry, normal turgor, no rashes or lesions noted Laboratory Results - last 24 hr 06/20/18 06/20/18 07:10 07:10 WBC 7.2 RBC 4.54 Hgb 11.3 L Hct 33.9 L MCV 74.6 L MCH 25.0 L MCHC 33.5 RDW 18.7 H Absolute Neuts (auto) 4.5 Neutrophils % 61.9 Lymphocytes % 23.1 Monocytes % 7.2 Eosinophils % 6.9 H Basophils % 0.9 Nucleated RBC % 0 Sodium 145 Potassium 3.5 Chloride 110 H Carbon Dioxide 26 Anion Gap 9 BUN 29 H Creatinine 1.4 H Creat Clearance w eGFR 56.72 Random Glucose 108 H Calcium 9.3 Phosphorus 3.5 Magnesium 2.3 Active Medications Generic Name Dose Route Start Last Admin Trade Name Freq PRN Reason Stop Dose Admin Albuterol Sulfate 1 amp 06/17/18 06:22 06/19/18 08:40 Ventolin 0.083% Nebulizer Soln - NEB 1 amp Q4H PRN Administration SHORT OF BREATH/WHEEZING Bisacodyl 10 mg 06/18/18 08:22 Dulcolax Suppository - RC DAILY PRN CONSTIPATION Clindamycin Phosphate 1 applic 06/18/18 22:00 06/19/18 21:05 Cleocin 1% Gel - TP 1 applic HS JALEN Administration Clotrimazole 1 applic 06/18/18 22:00 06/20/18 09:17 Lotrisone Cream (Small Tube) TP 1 applic BID JALEN Administration Ferrous Sulfate 300 mg 06/19/18 10:00 06/20/18 09:14 Feosol PEG 300 mg DAILY JALEN Administration Fluticasone Propionate 1 spray 06/18/18 10:00 06/20/18 09:16 Flonase - NS Not Given DAILY JALEN Heparin Sodium (Porcine) 5,000 unit 06/17/18 14:00 06/20/18 06:09 Heparin - SQ 5,000 unit TID JALEN Administration Piperacillin Sod/Tazobactam 50 mls @ 100 mls/hr 06/17/18 13:00 06/20/18 09:56 Sod 3.375 gm/ Dextrose IVPB 100 mls/hr Q8H-IV JALEN Administration Protocol Dextrose/Sodium Chloride 20 meq in 1,000 mls @ 75 mls/hr 06/19/18 14:14 06/20 09:55 Dextrose 5%-Normal Saline+20 Meq Kcl - IV 75 mls/hr ASDIR JALEN Administration Lactobacillus Acidophilus 1 tab 06/18/18 10:00 06/20/18 09:14 Bacid - PEG 1 tab BID JALEN Administration (Tiagabine Hcl 4 Mg) 4 mg 06/18/18 14:00 06/20/18 06:09 Patient's Own PEG 4 mg Medication (Non- TID JALEN Administration Formulary) Nystatin 1 applic 06/18/18 22:00 06/20/18 09:18 Nystop Powder - TP 1 applic BID JALEN Administration Petrolatum 1 applic 06/18/18 22:00 06/19/18 21:05 Sensi-Care Protective Ointment TP 1 applic BID JALEN Administration Simethicone 40 mg 06/18/18 10:00 06/20/18 09:14 Mylicon Liquid - PEG 40 mg QID JALEN Administration ASSESSMENT/PLAN:
[2018-06-20 11:17] LABS: ANION GAP 7 MMOL/L (8-16); BLOOD UREA NITROGEN 27 mg/dL (7-18); CALCIUM 9.2 mg/dL (8.5-10.1); CHLORIDE 113 mmol/L (98-107); CO2 27 mmol/L (21-32); CREATININE 1.2 mg/dL (0.55-1.3); GLUCOSE,RANDOM 116 mg/dL (74-106); POTASSIUM 3.4 mmol/L (3.5-5.1); SODIUM 147 mmol/L (136-145)
--- NOTE | 2018-06-20 11:34 | DS ---
Physical Exam: SUBJECTIVE: Patient seen and examined. Gastrostomy bag and flange changed. No fever, no diarrhea. Pt. had a large BM overnight. OBJECTIVE: Vital Signs Period Temp Pulse Resp BP Sys/Arauz Pulse Ox Last 24 Hr 97.4 F-98.0 F 86-91 18-20 127-134/89-94 92 PHYSICAL EXAM GENERAL: The patient is awake, alert, non-verbal, in no acute distress. EYES: Sclera anicteric, conjunctiva clear. ENT: Ears normal, nares patent, oropharynx clear without exudates, moist mucous membranes, copious secretions. LUNGS: Coarse breath sounds, clear to auscultation bilaterally, no wheezes, no crackles, no accessory muscle use. HEART: Regular rate and rhythm, S1, S2 without murmur ABDOMEN: Soft, nontender, nondistended, normoactive bowel sounds, no guarding, no rebound. Finch in place draining yellow urine, gastrostomy bag in place draining fluid, J-tube in place with yellow discharge around site. EXTREMITIES: 2+ dorsal pedal and radial pulses, warm, well-perfused, no calf tenderness, no edema. PSYCH: Normal mood, normal affect. SKIN: Warm, dry, normal turgor, no rashes or lesions noted. LABS Laboratory Results - last 24 hr 06/20/18 06/20/18 06/20/18 07:10 07:10 10:35 WBC 7.2 RBC 4.54 Hgb 11.3 L Hct 33.9 L MCV 74.6 L MCH 25.0 L MCHC 33.5 RDW 18.7 H Absolute Neuts (auto) 4.5 Neutrophils % 61.9 Lymphocytes % 23.1 Monocytes % 7.2 Eosinophils % 6.9 H Basophils % 0.9 Nucleated RBC % 0 Sodium 145 147 H Potassium 3.5 3.4 L Chloride 110 H 113 H Carbon Dioxide 26 27 Anion Gap 9 7 L BUN 29 H 27 H Creatinine 1.4 H 1.2 Creat Clearance w eGFR 56.72 > 60 Random Glucose 108 H 116 H Calcium 9.3 9.2 Phosphorus 3.5 Magnesium 2.3 HOSPITAL COURSE: Date of Admission:06/16/18 Date of Discharge: 06/20/18 Pt. admitted for hypotension, temperature to 100.8, tachycardia and elevated WBC suspicious for aspiration pneumonia. Pt. had CT-Chest which showed LLL aspirate with out evidence of pneumonia. CT Abdomen and Pelvis showed gastrostomy w/ mucocele in anterior skin surface, small bowel ileus, distended loops of bowel, unable to r/o obstruction at that time. KUB showed distended loops of bowel. Pt. developed OTIS which resolved with fluid resuscitation. Pt. was treated with 1 dose of Vancomycin and 4 days of Zosyn. Pt. was given IV fluids and held NPO for bowel rest. Consults to surgery, wound care and ID were appreciated. Pt. discharged with antibiotics as detailed below. Hospital care discussed with Pt.'s mother, Dr. Rios and hospital staff. Minutes to complete discharge: 32 Discharge Summary Reason For Visit: CELLULITIS, SEPSIS Current Active Problems Cerebral palsy (Acute) Fever (Acute) Seizures (Acute) Sepsis (Acute) Condition: Improved - Instructions Diet, Activity, Other Instructions: You were admitted for low blood pressure and fever which was suspicious for aspiration pneumonia. You were treated with IV antibiotics. We are discharging you on 3 days of Augmentin (antibiotic) 875mg to be take TWICE a day for 3 days Please take this medication as prescribed Please resume all home medications as prescribed. Please return to the ED if you are experiencing fever, shortness of breath or signs of infection from open wounds. Referrals: Asaf Rios Jr [Primary Care Provider] - Disposition: RETIREMENT FACILITY - Home Medications Comprehensive Discharge Medication List: Ambulatory Orders Atenolol [Tenormin -] 37.5 mg PEG DAILY 06/16/18 Baclofen 10 mg PEG TID 06/16/18 Bisacodyl Suppository [Dulcolax Suppository -] 10 mg RC Q2D PRN 06/16/18 Clindamycin 1% Gel [Cleocin *Gel*] 1 applic TP HS 06/16/18 Ferrous Sulfate [Ferosul] 220 mg PEG DAILY 06/16/18 Fluticasone Prop 0.05% Nasal [Flonase -] 2 spray NS DAILY 06/16/18 Lactobacillus Acidophilus/Fos [Acidophilus Probiotic Tablet] 1 each PEG BID Multivit-Minerals/Ferrous Fum [Multivitamin Liquid] 9 mg PEG DAILY 06/16/18 Nystatin Powder [Nystop Topical Powder -] 15 gm TP BID 06/16/18 Potassium Chloride [Potassium Chloride Oral Liquid] 10 meq PEG DAILY 06/16/18 Simethicone Liquid [Mylicon] 40 mg PEG QID 06/16/18 Tiagabine HCl [Gabitirl (Nf) -] 4 mg PEG TID 06/16/18 Tizanidine HCl 4 mg PEG QID 06/16/18 Zinc Gluconate 100 mg PEG DAILY 06/16/18 Zinc Oxide 20% Topical Oint 454 gm NR BID 06/16/18 Albuterol 0.083% Nebulizer Emeli [Ventolin 0.083%] 1 neb NEB Q4H 06/17/18 Clotrimazole/Betamethasone Dip [Clotrimazole-Betamethasone Crm] 45 gm TP TID Mag Hydrox/Aluminum Hyd/Simeth [Antacid Plus Anti-Gas Liquid] 5 ml PEG TID 06/17 Protein Supplement [Promod] 30 ml GT BID 06/17/18 Water [Similac Sterilized Water] 300 ml PEG Q8H 06/17/18 Calcium Carbonate [Calcium] 1 tab PEG TID 06/18/18 This patient is new to me today: No Emergency Visit: Yes ED Registration Date: 06/16/18 Care time: The patient presented to the Emergency Department on the above date and was hospitalized for further evaluation of their emergent condition. Critical Care patient: No - Discharge Referral Referred to [facility] No
[2018-06-20 12:56] VITALS: BP 128/80
[2018-06-20 14:33] VITALS: PULSE 81; TEMP 98.5
== END 2018-06-20 15:29 | DRG 720 ==
LOC: JER 23:06 → JERBED 23:36 → J6S 06-17 09:47
PROVIDERS: ADMIT Internal Medicine; ATTEND Internal Medicine
PROC: 3E0G36Z Introduction of Nutritional Substance into Upper GI, Percutaneous Approach (ICD-10-PCS; principal; 2018-06-17)
DX: A41.9 Sepsis, unspecified organism (principal); F73 Profound intellectual disabilities; R00.0 Tachycardia, unspecified; G80.9 Cerebral palsy, unspecified; E05.90 Thyrotoxicosis, unspecified without thyrotoxic crisis or storm; D56.3 Thalassemia minor; Q65.1 Congenital dislocation of hip, bilateral; Q67.5 Congenital deformity of spine; K21.9 Gastro-esophageal reflux disease without esophagitis; Z93.1 Gastrostomy status; R14.0 Abdominal distension (gaseous); R50.9 Fever, unspecified; R53.2 Functional quadriplegia; I10 Essential (primary) hypertension; K59.00 Constipation, unspecified; R56.9 Unspecified convulsions; M62.838 Other muscle spasm; E04.2 Nontoxic multinodular goiter; K56.7 Ileus, unspecified; I45.81 Long QT syndrome; R09.02 Hypoxemia; L03.311 Cellulitis of abdominal wall; N17.9 Acute kidney failure, unspecified; I95.9 Hypotension, unspecified; L89.323 Pressure ulcer of left buttock, stage 3; L89.312 Pressure ulcer of right buttock, stage 2
CPT/HCPCS: 36415; 71045-TC-FY; 71260-TC; 74018-TC-FY; 74177-TC; 80048; 80053; 81003; 81015; 82272; 82550; 82553; 82728; 82803; 82977; 83540; 83550; 83605; 83735; 84100; 84134; 84443; 84466; 84484; 85025; 85027; 85044; 85610; 85730; 86850; 86900; 86901; 87040; 87045; 87046; 87070; 87081; 87086; 87186; 87205; 87324; 87449; 87899; 93005; 93010; 94640; 99285-25; J0131; J1644; J7030